=== PATIENT | female | born 1960 | race Asian ===

== ENCOUNTER 2018-12-24 23:50 | Emergency (ER) | payer OTHER ==
[~2018-12-24] VITALS: Ht 152.4 cm; Wt 57.2 kg
[2018-12-25 00:03] VITALS: Ht 152.4 cm; Wt 57.2 kg
[2018-12-25 00:51] LABS: UA SPECIFIC GRAVITY 1.015 (1.005-1.035); microscopic required? YES; urine erythrocyte 3+ (NEGATIVE)
[2018-12-25 00:55] LABS: BASOPHIL % 0.4 % (0-2); PLATELET COUNT 252 x10^3mcL (130-400); RED CELL DISTRIBUTION WIDTH 14.2 % (11.5-14.5)
[2018-12-25 01:04] LABS: CALCIUM 10.7 mg/dL (8.5-10.1); CARBON DIOXIDE 26.5 mmol/L (21-32); CHLORIDE SERUM 105 mmol/L (98-107); CREATININE SERUM 0.7 mg/dL (0.6-1.0); GFR1 > 60 mL/min; GLUCOSE SERUM 135 mg/dL (74-106); POTASSIUM SERUM 3.8 mmol/L (3.5-5.1); SODIUM SERUM 141 mmol/L (136-145)
[2018-12-25 01:09] LABS: ALBUMIN 3.7 g/dL (3.4-5.0); ALKALINE PHOSPHATASE 98 U/L (46-116); ALT/SGPT 7 U/L (14-59); AST/SGOT 15 U/L (15-37); BILIRUBIN TOTAL 0.44 mg/dL (0.20-1.00)
[2018-12-25 01:10] LABS: TOTAL PROTEIN, SERUM 8.5 g/dL (6.4-8.2)
[2018-12-25 02:58] VITALS: BP 113/78
[2018-12-26] MEDS ORDERED: LEVAQUIN750 MG PO (11:59)
[2018-12-26] MEDS ORDERED: IMITREX50 MG PO (12:13)
== END 2018-12-25 03:00 | disposition home or self-care (01) ==
LOC: ED 23:50
PROVIDERS: Specialist
DX: N39.0 Urinary tract infection, site not specified (principal)
CPT/HCPCS: 36415; J0696; Q0092

== ENCOUNTER 2018-12-25 10:07 | Inpatient (IN) | payer OTHER ==
[~2018-12-25] VITALS: Ht 170.2 cm; Wt 54.6 kg
[2018-12-25 10:54] LABS: BASOPHIL % 0.4 % (0-2); PLATELET COUNT 235 x10^3mcL (130-400); RED CELL DISTRIBUTION WIDTH 14.4 % (11.5-14.5)
[2018-12-25 11:03] LABS: CALCIUM 10.5 mg/dL (8.5-10.1); CARBON DIOXIDE 26.6 mmol/L (21-32); CHLORIDE SERUM 103 mmol/L (98-107); CREATININE SERUM 0.7 mg/dL (0.6-1.0); GFR1 > 60 mL/min; GLUCOSE SERUM 120 mg/dL (74-106); POTASSIUM SERUM 4.3 mmol/L (3.5-5.1); SODIUM SERUM 138 mmol/L (136-145)
[2018-12-25 11:08] LABS: ALBUMIN 3.7 g/dL (3.4-5.0); ALKALINE PHOSPHATASE 95 U/L (46-116); ALT/SGPT 18 U/L (14-59); AST/SGOT 34 U/L (15-37); BILIRUBIN TOTAL 0.4 mg/dL (0.20-1.00); LIPASE 102 IU/L (73-393)
[2018-12-25 11:09] LABS: TOTAL PROTEIN, SERUM 8.3 g/dL (6.4-8.2)
[2018-12-25 14:06] VITALS: BP 131/63
[2018-12-25 14:08] VITALS: Ht 170.2 cm; Wt 54.6 kg
[2018-12-25 16:13] VITALS: BP 114/69
[2018-12-25 16:43] LABS: MAGNESIUM 2.4 mg/dL (1.8-2.4); PHOSPHOROUS 3.5 mg/dL (2.5-4.9)
[2018-12-25 17:30] LABS: CHOLESTEROL/HDL RATIO 2.6
[2018-12-25 20:14] VITALS: BP 122/66
[2018-12-26 05:10] VITALS: BP 109/63
[2018-12-26 06:00] LABS: BASOPHIL % 0.3 % (0-2)
[2018-12-26 06:30] LABS: CALCIUM 10.1 mg/dL (8.5-10.1); CARBON DIOXIDE 28.1 mmol/L (21-32); CHLORIDE SERUM 105 mmol/L (98-107); CREATININE SERUM 0.7 mg/dL (0.6-1.0); GFR1 > 60 mL/min; GLUCOSE SERUM 96 mg/dL (74-106); MAGNESIUM 2.4 mg/dL (1.8-2.4); POTASSIUM SERUM 3.9 mmol/L (3.5-5.1); SODIUM SERUM 141 mmol/L (136-145)
[2018-12-26 06:48] LABS: PLATELET COUNT 221 x10^3mcL (130-400); RED CELL DISTRIBUTION WIDTH 14.6 % (11.5-14.5)
[2018-12-26 09:15] VITALS: BP 106/51
[2018-12-26] MEDS ORDERED: LEVAQUIN750 MG PO (11:59)
[2018-12-26] MEDS ORDERED: IMITREX50 MG PO (12:13)
[2018-12-26 14:10] VITALS: BP 106/51
== END 2018-12-26 15:04 | disposition home or self-care (01) | DRG 700 ==
LOC: ED 10:07 → MU 12:35
PROVIDERS: Emergency Medicine; ADMIT General Practice
DX: N28.89 Other specified disorders of kidney and ureter (principal); N17.0 Acute kidney failure with tubular necrosis; N39.0 Urinary tract infection, site not specified; R31.9 Hematuria, unspecified; K80.20 Calculus of gallbladder without cholecystitis without obstruction; E83.52 Hypercalcemia; R73.9 Hyperglycemia, unspecified
CPT/HCPCS: 83880; J0696; J2270; J2405; J7050; Q9967

== ENCOUNTER 2020-02-03 01:21 | Emergency (ER) | payer OTHER ==
[~2020-02-03] VITALS: Ht 157.5 cm; Wt 57.6 kg
[~2020-02-03 01:21] MED LIST: IMITREX50 MG PO; LEVAQUIN750 MG PO
[2020-02-03 01:29] VITALS: Ht 157.5 cm; Wt 57.6 kg
[2020-02-03 01:57] LABS: BASOPHIL % 0.2 % (0-2); PLATELET COUNT 264 x10^3mcL (130-400); RED CELL DISTRIBUTION WIDTH 13.8 % (11.5-14.5)
[2020-02-03 02:09] LABS: CALCIUM 12.8 mg/dL (8.5-10.1); CARBON DIOXIDE 27.6 mmol/L (21-32); CREATININE SERUM 1.1 mg/dL (0.6-1.0); POTASSIUM SERUM 4.2 mmol/L (3.5-5.1)
[2020-02-03 02:16] LABS: BILIRUBIN TOTAL 0.4 mg/dL (0.20-1.00); MAGNESIUM 2.4 mg/dL (1.8-2.4); TOTAL PROTEIN, SERUM 8.4 g/dL (6.4-8.2)
[2020-02-03 02:17] LABS: CHOLESTEROL/HDL RATIO 2.7
[2020-02-03 02:20] LABS: T3 TOTAL 1.46 ng/mL
[2020-02-03 02:22] LABS: FREE T4 1.12 ng/dL (0.76-1.46); FREE THYROXINE INDEX 3.2 ug/dL (1.4-4.5); T4(THYROXINE) 11.3 ug/dL (4.7-13.3)
[2020-02-03 04:18] LABS: microscopic required? YES
[2020-02-03 04:19] LABS: urine erythrocyte NEGATIVE (NEGATIVE)
[2020-02-03 05:13] VITALS: BP 145/79
== END 2020-02-03 05:13 | disposition home or self-care (01) ==
LOC: ED 01:21
PROVIDERS: Specialist
DX: E83.52 Hypercalcemia (principal); Z85.528 Personal history of other malignant neoplasm of kidney
CPT/HCPCS: 82652; 83880; 84439; J7030; Q0092

== ENCOUNTER 2020-02-08 21:33 | Inpatient (IN) | payer OTHER ==
[~2020-02-08] VITALS: Ht 152.4 cm; Wt 57.6 kg
[2020-02-08 21:46] VITALS: Ht 152.4 cm; Wt 57.6 kg
[2020-02-08 22:28] LABS: BASOPHIL % 0.7 % (0-2); PLATELET COUNT 282 x10^3mcL (130-400); RED CELL DISTRIBUTION WIDTH 13.1 % (11.5-14.5)
[2020-02-08 22:44] LABS: ALBUMIN 3.8 g/dL (3.4-5.0); BILIRUBIN TOTAL 0.23 mg/dL (0.20-1.00); CREATININE SERUM 1.5 mg/dL (0.6-1.0); POTASSIUM SERUM 4.9 mmol/L (3.5-5.1); TOTAL PROTEIN, SERUM 8.1 g/dL (6.4-8.2)
[2020-02-08 22:59] LABS: CALCIUM 14.4 mg/dL (8.5-10.1)
[2020-02-08 23:36] LABS: microscopic required? YES; urine erythrocyte 3+ (NEGATIVE)
[2020-02-09 02:43] VITALS: BP 129/63
[2020-02-09 04:21] LABS: CALCIUM 12.7 mg/dL (8.5-10.1); CREATININE SERUM 2.1 mg/dL (0.6-1.0); MAGNESIUM 2.2 mg/dL (1.8-2.4); PHOSPHOROUS 3.6 mg/dL (2.5-4.9); POTASSIUM SERUM 5.1 mmol/L (3.5-5.1)
[2020-02-09 04:29] LABS: T3 TOTAL 1.13 ng/mL
[2020-02-09 04:31] LABS: FREE T4 1.28 ng/dL (0.76-1.46); FREE THYROXINE INDEX 3.4 ug/dL (1.4-4.5); T4(THYROXINE) 10.6 ug/dL (4.7-13.3)
[2020-02-09 04:37] LABS: BASOPHIL % 0.2 % (0-2); PLATELET COUNT 252 x10^3mcL (130-400); RED CELL DISTRIBUTION WIDTH 13.1 % (11.5-14.5)
[2020-02-09 06:15] VITALS: BP 124/64
[2020-02-09 09:17] VITALS: BP 125/59
[2020-02-09 12:00] VITALS: BP 133/60
[2020-02-09 16:51] VITALS: BP 127/53
[2020-02-09 20:48] VITALS: BP 130/58
[2020-02-10 05:35] VITALS: BP 122/62
[2020-02-10 06:32] LABS: BASOPHIL % 0.2 % (0-2); PLATELET COUNT 218 x10^3mcL (130-400); RED CELL DISTRIBUTION WIDTH 13.2 % (11.5-14.5)
[2020-02-10 06:44] LABS: CALCIUM 12.1 mg/dL (8.5-10.1); CARBON DIOXIDE 23.4 mmol/L (21-32); MAGNESIUM 2.4 mg/dL (1.8-2.4); PHOSPHOROUS 3.6 mg/dL (2.5-4.9); POTASSIUM SERUM 5.5 mmol/L (3.5-5.1)
[2020-02-10 09:01] VITALS: BP 122/66
[2020-02-10 12:38] VITALS: BP 102/53
[2020-02-10 17:45] VITALS: BP 130/63
[2020-02-10 21:03] VITALS: BP 124/60; BP 136/52
[2020-02-10 21:06] LABS: AMPHETAMINE QUAL UR NONE DETECTED (See below)
[2020-02-11 05:15] VITALS: BP 116/61
[2020-02-11 06:26] LABS: BASOPHIL % 0.2 % (0-2); PLATELET COUNT 200 x10^3mcL (130-400)
[2020-02-11 07:08] LABS: CALCIUM 11.5 mg/dL (8.5-10.1); CARBON DIOXIDE 25.3 mmol/L (21-32); CREATININE SERUM 3.5 mg/dL (0.6-1.0); MAGNESIUM 2.1 mg/dL (1.8-2.4); PHOSPHOROUS 3.5 mg/dL (2.5-4.9); POTASSIUM SERUM 4.5 mmol/L (3.5-5.1)
[2020-02-11 08:18] VITALS: BP 114/47
[2020-02-11 12:26] VITALS: BP 131/67
[2020-02-11 14:39] LABS: CREATININE SERUM 5.1 mg/dL (0.6-1.0)
[2020-02-11 16:41] VITALS: BP 124/69
[2020-02-11 20:38] VITALS: BP 114/72
[2020-02-12 05:29] VITALS: BP 107/61
[2020-02-12 06:38] LABS: CALCIUM 10.3 mg/dL (8.5-10.1); CARBON DIOXIDE 25.3 mmol/L (21-32); CREATININE SERUM 2.2 mg/dL (0.6-1.0); MAGNESIUM 1.9 mg/dL (1.8-2.4); PHOSPHOROUS 2.5 mg/dL (2.5-4.9)
[2020-02-12 06:51] LABS: BASOPHIL % 0.4 % (0-2); PLATELET COUNT 181 x10^3mcL (130-400)
[2020-02-12 08:25] VITALS: BP 123/64
[2020-02-12 12:23] VITALS: BP 143/79
[2020-02-12 16:08] VITALS: BP 143/79
[2020-02-12] MEDS ORDERED: CIPRO500 MG PO (16:27)
[2020-02-12] MEDS ORDERED: PROBIOTIC1 EACH PO (16:28)
[2020-02-12] MEDS ORDERED: TYL325 PO (16:28)
== END 2020-02-12 17:24 | disposition home or self-care (01) | DRG 660 ==
LOC: ED 21:33 → MU 02-09 01:36 → DU 02-09 01:36 → MU 02-09 10:11
PROVIDERS: Emergency Medicine; Student in an Organized Health Care Education/Training Program; Urology; ADMIT Family Medicine
PROC: 0T768DZ Dilation of Right Ureter with Intraluminal Device, Via Natural or Artificial Opening Endoscopic (ICD-10-PCS; 2020-02-10)
PROC: BT1D1ZZ Fluoroscopy of Right Kidney, Ureter and Bladder using Low Osmolar Contrast (ICD-10-PCS; principal; 2020-02-10 15:00)
DX: N13.6 Pyonephrosis (principal); C78.02 Secondary malignant neoplasm of left lung; C78.01 Secondary malignant neoplasm of right lung; C64.1 Malignant neoplasm of right kidney, except renal pelvis; N13.9 Obstructive and reflux uropathy, unspecified; E87.5 Hyperkalemia; R91.1 Solitary pulmonary nodule; N17.0 Acute kidney failure with tubular necrosis; R31.9 Hematuria, unspecified; E83.52 Hypercalcemia; Z90.5 Acquired absence of kidney; Z90.2 Acquired absence of lung [part of]; Z68.21 Body mass index [BMI] 21.0-21.9, adult; Z90.81 Acquired absence of spleen
CPT/HCPCS: 76770; 83880; 84439; 97116-GP; C1758; C2625; G0378; J0696; J2270; J2405; J2430; J3010; J3490; J7030; J7060; Q0092; Q9958; Q9967

== ENCOUNTER 2020-05-20 19:07 | Inpatient (IN) | payer OTHER ==
[~2020-05-20] VITALS: Ht 165.1 cm; Wt 50.3 kg
[~2020-05-20 19:07] MED LIST changes: +CIPRO500 MG PO; +PROBIOTIC1 EACH PO; +TYL325 PO
--- NOTE | 2020-05-20 19:22 | NUR ---
PT BIB [facility] FOR WEAKNESS AND CP. PER MEDIC FAMILY REPORTS PT IS ON HOSPICE FOR KIDNEY AND LUNG CANCER. PER FAMILY PT HGB EARLIER TODAY AT STUDIO COORDINATOR WAS 4.1 AND STUDIO COORDINATOR RECOMMENDED PT GO TO ED FOR BLOOD TRANSFUSION. PT C/O FEELING WEAK, DENIES N/V AND CP AT THIS TIME. PER MEDIC PT FAMILY REPORTS TAKING PT OFF HOSPICE TODAY TO GET TREATMENT FOR LOW HBG. PT IS CALM AND COOPERATIVE, RESPONDS TO VERBAL AND TACTILE STIMULI. PT NOTED WITH EYES CLOSED AND APPEARS PALE. PT IS A&OX4, BREATHING E/U. PT PLACED ON FULL PAIL TESTER.
--- NOTE | 2020-05-20 19:24 | NUR ---
EKG IN PROGRESS BY RAY EMT
--- NOTE | 2020-05-20 19:31 | NUR ---
XRAY AT BEDSIDE
[2020-05-20 19:41] LABS: BASOPHIL % 0.1 % (0-2)
[2020-05-20 19:42] LABS: PLATELET COUNT 468 x10^3mcL (130-400)
--- NOTE | 2020-05-20 19:52 | NUR ---
DR DYKES AT BEDSIDE FOR MSE
[2020-05-20 19:54] LABS: rbc morphology (normal/abnorm) ABNORMAL (NORMAL)
[2020-05-20 19:55] LABS: schistocyte (helmet cell) 1+; target cell (codocyte) 1+
[2020-05-20 19:57] LABS: BILIRUBIN TOTAL 0.3 mg/dL (0.20-1.00); CARBON DIOXIDE 14.8 mmol/L (21-32); TOTAL PROTEIN, SERUM 7.4 g/dL (6.4-8.2)
[2020-05-20 19:58] LABS: ALBUMIN 2.8 g/dL (3.4-5.0)
[2020-05-20 20:00] LABS: CALCIUM 13.7 mg/dL (8.5-10.1); CREATININE SERUM 5.3 mg/dL (0.6-1.0)
--- NOTE | 2020-05-20 21:26 | NUR ---
PT NOTED RESTING IN BED IN A POSITION OF COMFORT. PT ASSISTED WITH ACCESSING HER BAG AT BEDSIDE TO OBTAIN BLANKET FROM HOME. PT ALSO RECEIVED WARM BLANKET. PT RESPONDS TO VERBAL AND TACTILE STIMULI. PT REMAINS ON FULL HUMAN RESOURCES BENEFITS ASSISTANT.
--- NOTE | 2020-05-20 23:05 | NUR ---
DR DYKES MADE AWARE OF BLOOD GLUCOSE-56, PER DR DYKES GIVE PT APPLE JUICE AND WATER.
--- NOTE | 2020-05-20 23:11 | NUR ---
PT RECEIVED WATER AND APPLE JUICE AT THIS TIME. PT NOTED SITTING UP IN BED, BREATHING E/U. PT REMAINS IN VIEW OF NURSES STATION AND ON FULL HIDE DYER.
--- NOTE | 2020-05-20 23:42 | NUR ---
REPORT CALLED TO ARSEN BERGER. ARSEN MOORE TO ASSUME PT CARE. PT GOING TO 237B
--- NOTE | 2020-05-20 23:46 | NUR ---
RECEIVED PT FROM ED [facility]IA [facility], CAME IN DUE TO WEAKNESS. PT IS AAOX4. DENIES HEADACHE/DIZZINESS. ABLE TO FOLLOW COMMANDS. NO SOB NOTED, LUNG SOUNDS DIMINISHED ON AUSCULTATION, O2 SAT=93%, RA. DENIES CHEST PAIN/PRESSURE, SR ON THE MONITOR. DENIES ABDOMINAL DISCOMFORT. ABDOMEN IS SOFT. LAST BM WAS YESTERDAY, HAD HARD STOOLS. STATED THAT SHE HAS FREQUENT URINATION. IV SITES ON THE LAC AND LEFT FOOT GAUGE 20. GENERALIZED WEAKNESS NOTED. SIDE RAILS UPX2. CALL LIGHT ON REACH. PRIMARY NURSE OSCAR AT BEDSIDE FOR CONTINUITY OF CARE
--- NOTE | 2020-05-20 23:51 | NUR ---
PT OFF FLOOR WITH ARSEN GREGORIO AND MANJEET RICHARDS. PT ON FULL COMPUTER APPLICATION DEVELOPER DURING TRANSPORT. PT IS AWAKE AND ALERT, BREATHING E/U, NO S/S OF DISTRESS NOTED. PT TRANSF[place]IA [place]. PT TRANSFERED FROM [facility] [place] TO BED 237B WITHOUT INJURY. ARSEN MOORE AT BEDSIDE TO ASSUME PT CARE.
[2020-05-21] VITALS (9 sets, daily range): BP systolic 105–165; BP diastolic 59–102; Ht 165.1 cm; Wt 50.3 kg
--- NOTE | 2020-05-21 00:40 | NUR ---
PRE-PRBC TRANSFUSION VS: 99.4F, 91BPM, 132/64 (87), 17 RR, 94% ON 1LNC. PRBC VERIFED WITH ARSEN SLOAN. IV PATENT AND INTACT, PRBC STARTED AT 50ML/HR. NO ACUTE DISTRESS NOTED. WILL CONTINUE TO MONITOR FOR ANY ADVERSE S/S.
--- NOTE | 2020-05-21 00:59 | NUR ---
POST 15MINS PRBC TRANSFUSION. NO S/S OF ADVERSE REACTION. NO ACUTE DISTRESS NOTED. VS: 98.8F, 82BPM, 128/62 (84), 16RR, 96% ON 1LNC, 0/10 PAIN. RATE INCREASE TO 110 ML/HR. PT TOLERATING WELL. BED IN LOWEST POSITION. SIDE RAILS UPX2. CALL LIGHT WITHIN REACH. WILL CONTINUE TO MONITOR.
[2020-05-21 01:16] LABS: CARBON DIOXIDE 16.4 mmol/L (21-32)
[2020-05-21 01:22] LABS: POTASSIUM SERUM 6.2 mmol/L (3.5-5.1)
[2020-05-21 01:23] LABS: CALCIUM 13.1 mg/dL (8.5-10.1); CREATININE SERUM 5.3 mg/dL (0.6-1.0)
--- NOTE | 2020-05-21 04:21 | NUR ---
PT'S SON AMARJIT CALLED AND ALL UPDATES GIVEN, AMARJIT [phone].
--- NOTE | 2020-05-21 04:29 | NUR ---
PRBC TRANSFUSION COMPLETED 0350, PT C/O CHILLS, VS: 100.4F, 131 BPM, 165/102 (123), 30RR, 92% ON 2LNC, 0/10 PAIN. PT AWAKE, ABLE TO FOLLOW SIMPLE COMMANDS. ATTEMPTED TO MEDICATE PT FOR TEMP, UNABLE TO KEEP PO MEDICATIONS AND WATER DOWN, NAUSEA AND VOMITING NOTED. MD MADE AWARE. BLOOD TRANSFUSION REACTION PROTOCOL INITIATED. BLOOD BAG WITH TUBING SENT TO LAB. ORDERED MEDICATIONS ADMINISTERED PER EMAR. 250ML NS BOLUS INFUSING. IV PATENT AND INTACT, NO REDNESS OR DRAINAGE NOTED. BED IN LOWEST POSITION. SIDE RAILS UPX2. CALL LIGHT WITHIN REACH. WILL CONTINUE TO MONITOR.
--- NOTE | 2020-05-21 06:20 | NUR ---
PT RESTED IN INTERVALS THROUGHOUT THE SHIFT. ALL NEEDS TENDED TO AND MET. ALL SCHEDULED MEDICATION GIVEN. S/P 1 UNIT PRBC, REACTION NOTED POST TRANSFUSION: CHILLS, N/V, DYPNEA, ELEVATED BP, TACHYCARDIC. EVEN AND UNLABORED RESPIRATIONS ON 2LNC, SATTING 93%, ON TELE# [address] 110-140'S BPM. NO C/O PAIN OR SOB AT THIS TIME. BED IN LOWEST POSITION. SIDE RAILS UPX2. CALL LIGHT WITHIN REACH. WILL ENDORSE TO ONCOMING SHIFT.
[2020-05-21 07:15] LABS: BASOPHIL % 0.1 % (0-2)
--- NOTE | 2020-05-21 07:15 | NUR ---
RECEIVED PT FROM MANAGER CULINARY NURSE. PT RESTING IN BED, AOX4, RESP E/U ON 2L NC. C/O R FLANK PAIN AT THIS TIME. WILL F/U W/ PAIN MED ORDERS PER EMAR, COMFORT MEASURES IMPLEMENTED. ON TELE [address], HR: 121, S1 AND S2 WNL, DENIES CHEST PAIN OR PALPITATIONS. IV TO LAC W/ NO SIGNS OF INFILTRATION, SALINE LOCK TO L ANKLE W/ NO ERYTHEMA/EDEMA. BED IN LOWEST POSITION AND CALL LIGHT WITHIN REACH. WILL CONTINUE TO MONITOR.
[2020-05-21 07:16] LABS: PLATELET COUNT 405 x10^3mcL (130-400); RED CELL DISTRIBUTION WIDTH 19.6 % (11.5-14.5)
--- NOTE | 2020-05-21 07:54 | NUR ---
PT SEEN AT BEDSIDE. TEMP: 100.1. PT NOTED TO HAVE DIFFICULTY SWALLOWING WATER AT THIS TIME, DENIES NAUSEA. ADMINISTERED TYLENOL ORDERED PER EMAR W/ MERLENE, TOLERATED WELL. COOLING MEASURES IMPLEMENTED. WILL CONTINUE TO MONITOR.
[2020-05-21 08:21] LABS: CALCIUM 12.9 mg/dL (8.5-10.1); CARBON DIOXIDE 14.9 mmol/L (21-32); MAGNESIUM 1.8 mg/dL (1.8-2.4); PHOSPHOROUS 5.4 mg/dL (2.5-4.9)
[2020-05-21 08:25] LABS: CREATININE SERUM 5.5 mg/dL (0.6-1.0); POTASSIUM SERUM 6.4 mmol/L (3.5-5.1)
--- NOTE | 2020-05-21 11:50 | NUR ---
PT RESTING IN BED, AOX3, RESP E/U ON 2L NC. PT STATED SHE NEEDED TO URINATE. ASSISTED TO RESTROOM VIA WALKER, 230 ML OF BLOODY URINE NOTED, SAMPLE FOR UA COLLECTED. BLADDER SCAN DONE AT BEDSIDE, NO RETAINED FLUIDS DETECTED. PT DENIES PAIN, SOB OR NAUSEA. BED IN LOWEST POSITION AND CALL LIGHT WITHIN REACH. WILL CONTINUE TO MONITOR.
--- NOTE | 2020-05-21 13:39 | NUR ---
SPOKE W/ DR. EVERETT REGARDING BLADDER SCAN FINDINGS AND PT BLOODY URINE OUTPUT. INSTRUCTED NOT TO INTITIATE GROVE CATHETER INSERTION.
[2020-05-21 14:01] LABS: microscopic required? YES; urine erythrocyte 3+ (NEGATIVE)
--- NOTE | 2020-05-21 14:34 | NUR ---
PT SEEN AT BEDSIDE. ACCUCHECK DONE, GLUCOSE: 18, REPEATED W/ SAME RESULT. DR. EVERETT PAGED. ORDERED FOR D50 IVP AND TO HANG IV D5W AT 15 ML/HR PER EMAR. RECHECKED AFTER 15 MINUTES, GLUCOSE: 127. RESULT PAGEMD Gina CALLED, AWAITING RESPONSE FOR FURTHER ORDERS.
--- NOTE | 2020-05-21 18:55 | NUR ---
PRE TRANSFUSION VS TAKEN, T: 97.7, HR: 86, BP: 121/63, RR: 16, O2: 92% ON RA. BLOOD PRODUCT VERIFIED W/ RN JANEL. TRANSFUSION OF 1 UNIT PRBC STARTED AT 30 ML/HR INFUSING WELL. PT RESTING IN BED IN NO ACUTE DISTRESS. BED IN LOWEST POSITION AND CALL LIGHT WITHIN REACH. WILL ENDORSE TO ONCOMING NURSE.
--- NOTE | 2020-05-21 19:00 | NUR ---
RECEIVED REPORT FROM RAMAKRISHNA LEGER. PT IS AAOX3 AND LETHARGIC. PT DENIES ANY ORR/DIZZINESS. PT ON TELE #22, NSR WITH ELEV T WAVE. PT DENIES CP/PRESSURE. PT PULSES PALPABLE AND CAP REFILL <3 SEC. EDEMA NOTED TO BLE. PT LUNG SOUNDS DIMINISHED ON 2L NC. PT BREATHING E/U. PT DENIES SOB OR RESP DISTRESS. PT ABD SOFT/NONDISTENDED WITH ACTIVE BS X4. PT DENIES N/V/C/D. PT VOIDS FREELY. PT HAS GENERALIZED WEAKNESS, BUT AMBULATORY WITH ASSIST. PT SKIN INTACT. PT IS PALE COLOR. PT IS RECEIVING BLOOD TRANSFUSION AT THIS TIME INFUSING AT 100ML/HR. PT DENIES S/S OF PAIN OR DISCOMFORT AT THIS TIME. PT IV PATENT/INTACT. ALL NEEDS MET. CALL LIGHT WITHIN REACH. BED IN LOWEST POSITION. SIDE RAILS X2 UP. WILL CONTINUE TO MONITOR.
--- NOTE | 2020-05-21 19:20 | NUR ---
AT BEDSIDE WITH RAMAKRISHNA LEGER. BLOOD TRANSFUSING WELL AT 30ML/HR. 15 MIN V/S TAKEN. TEMP: 97.7, HR: 82, BP: 125/67, RR: 16, P02: 95% RA. NO ADVERSE RXN NOTED AT THIS TIME. INCREASED BLOOD TRANSFUSION TO 100ML/HR. CALL LIGHT WITHIN REACH. BED IN LOWEST POSITION. SIDE RAILS X2 UP. WILL CONTINUE TO MONITOR.
--- NOTE | 2020-05-21 20:21 | NUR ---
SON AMARJIT CALLED TO SPEAK WITH PT. TRANSFERRED CALL TO ROOM.
--- NOTE | 2020-05-21 22:00 | NUR ---
BLOOD TRANSFUSION COMPLETED AT THIS TIME. POST V/S ARE TEMP: 97.4, HR: 89, BP: 134/64, RR: 16, P02: 97% ON 2LNC. WILL CONTINUE TO MONITOR.
--- NOTE | 2020-05-21 22:30 | NUR ---
PT REFUSED TO HAVE GROVE INSERTION AND WOULD RATHER USE THE BATHROOM. WILL MAKE DR. OSPINA AWARE.
--- NOTE | 2020-05-21 23:35 | NUR ---
PT C/O NAUSEA AND IS SPITTING UP SALIVA INTO [place]. PER EMAR, ADMINISTERED ZOFRAN IVP FOR NAUSEA. WILL CONTINUE TO MONITOR.
--- NOTE | 2020-05-21 23:40 | NUR ---
HAIR SALON MANAGER AT BEDSIDE TO TAKE BLOOD DRAWS AFTER COMPLETION OF BLOOD TRANSFUSION.
[2020-05-22 00:40] LABS: PLATELET COUNT 363 x10^3mcL (130-400)
[2020-05-22 00:45] LABS: RED CELL DISTRIBUTION WIDTH 18.5 % (11.5-14.5)
[2020-05-22 01:03] LABS: BAND NEUTROPHIL 6 % (0-10); MONOCYTE 4 % (0-7); SEGMENTED NEUTROPHILS 81 % (37-75); burr cell (echinocyte) 1+; rbc morphology (normal/abnorm) ABNORMAL (NORMAL)
[2020-05-22 01:04] LABS: schistocyte (helmet cell) 1+
--- NOTE | 2020-05-22 01:06 | NUR ---
MADE DR. OSPINA AWARE OF WBC 20.9. PER DR, SHE WILL LOOK AT THE CHART. NO ORDERS GIVEN AT THIS TIME.
--- NOTE | 2020-05-22 01:19 | NUR ---
SPOKE WITH DR. OSPINA. PER , PT IS POSSIBLE TO HAVE UTI. SHE WILL PUT IN ORDER FOR URINE CULTURE AND ANTIBIOTICS.
[2020-05-22 04:37] VITALS: BP 122/69
--- NOTE | 2020-05-22 06:54 | NUR ---
PT IS MOANING IN PAIN. PER EMAR, ADMINISTERED NORCO PO FOR PAIN. WILL REASSESS PAIN. WILL CONTINUE TO MONITOR.
--- NOTE | 2020-05-22 06:54 | NUR ---
PT RESTED COMFORTABLY IN INTERVALS DURING THE NIGHT. PT COMPLIED WITH NURSING CARE DURING THE SHIFT. SAFETY AND COMFORT MEASURES MAINTAINED. NO ACUTE DISTRESS NOTED DURING THE NIGHT. ALL NEEDS AND CONCERNS ADDRESSED. WILL ENDORSE TO DAY SHIFT NURSE.
[2020-05-22 07:43] LABS: PLATELET COUNT 343 x10^3mcL (130-400)
--- NOTE | 2020-05-22 08:00 | NUR ---
RECEIVED PT FROM PM NURSE. PT IS RESTING IN BED AT THIS TIME. PT IS A/OX2. REORIENTED PT TO TIME AND PLACE. LETHARGIC. URDU SPEAKING ONLY. DIMINISHED LUNG SOUNDS. PT IS CURRENTLY ON 2L VIA NC. NO SOB NOTED AT THIS TIME. TELE #22. NSR WITH OCCASIONAL ELEVATED T WAVES. NO S/SX CP AT THIS TIME. PULSES EVEN AND PALPABLE. EDEMA NOTED TO BLE. HYPOACTIVE BS X4. ABD SOFT AND ROUND. VOIDS FREELY. BSC BY BEDSIDE. GENERALIZED WEAKNESS NOTED. BEDREST AT THIS TIME. SKIN INTACT. SLIGHT GRIMACE NOTED, WILL ADMINSTER PRN PAIN MEDICATION PER EMAR. IV TO RFA 20G RUNNING NS 100ML/HR AT THIS TIME. BED AT THE LOWEST POSITION. CALL BUTTON WITHIN REACH. WILL CONTINUE TO MONITOR.
[2020-05-22 08:09] VITALS: BP 129/71
[2020-05-22 08:13] LABS: BASOPHIL % 0 % (0-2); RED CELL DISTRIBUTION WIDTH 18.6 % (11.5-14.5)
[2020-05-22 08:18] LABS: CALCIUM 11.7 mg/dL (8.5-10.1); CARBON DIOXIDE 13.2 mmol/L (21-32); MAGNESIUM 1.9 mg/dL (1.8-2.4)
[2020-05-22 08:34] LABS: POTASSIUM SERUM 6.2 mmol/L (3.5-5.1)
--- NOTE | 2020-05-22 11:05 | NUR ---
PT IS MOANING IN PAIN. PER EMAR. WILL ADMINISTER MORPHINE PRN FOR SEVERE PAIN.
[2020-05-22 12:20] VITALS: BP 132/76
[2020-05-22 14:42] LABS: PLATELET COUNT 340 x10^3mcL (130-400)
[2020-05-22 14:53] LABS: RED CELL DISTRIBUTION WIDTH 18.8 % (11.5-14.5)
[2020-05-22 15:33] LABS: BAND NEUTROPHIL 15 % (0-10); BASOPHIL 0 % (0-2); MONOCYTE 1 % (0-7); SEGMENTED NEUTROPHILS 82 % (37-75)
[2020-05-22 15:34] LABS: rbc morphology (normal/abnorm) NORMAL (NORMAL)
[2020-05-22 15:35] LABS: PLATELET MORPHOLOGY PLATELETS NORMAL
--- NOTE | 2020-05-22 16:00 | NUR ---
dr. ramirez and dr. wen at bedside for hansel catheter placement. sh=892/73, rr=18, temp=98.8, qb=754, o2 sat=94% on 2lpm/nc. timeout performed.
--- NOTE | 2020-05-22 19:34 | NUR ---
ENDORSED CARE TO PM NURSE FOR CONTINUITY OF CARE. ALL QUESTIONS/CONCERNS ANSWERED.
--- NOTE | 2020-05-22 21:32 | NUR ---
PT VERY QUIET IN BED STABLE BEING HEMODIALYZED. NO DISTRESS NOTED. WILL CONTINUE TO GO IN TO SEE PATIENT. DIALYSIS NURSE AT BEDSIDE.
--- NOTE | 2020-05-23 00:10 | NUR ---
PTT IN BED AND NOT SEEM TO BE TOLERATING SWALLOWING. WILL INFORM MD. PT KEEPS FOOD IN MOUTH FOR A LONG TIME AND COUGHS AND SEEMS TO HAVE A DIFFICULT TIME WITH SWALLOWING.
--- NOTE | 2020-05-23 01:08 | NUR ---
PT GROANING IN PAIN. PT ASKED IF IN PAIN AND NODDED. WHEN ASKED WHERE, PATIENT PUTS HAND ON ABDOMEN. MORPHINE IV GIVEN. BP 128/71. NO OTHER DISTRESS NOTED. WILL CONTINUE TO MONITOR.
[2020-05-23 05:40] VITALS: BP 116/72
[2020-05-23 06:42] LABS: BASOPHIL % 0.1 % (0-2); PLATELET COUNT 268 x10^3mcL (130-400)
[2020-05-23 07:02] LABS: RED CELL DISTRIBUTION WIDTH 18.4 % (11.5-14.5)
[2020-05-23 07:19] LABS: CALCIUM 8.9 mg/dL (8.5-10.1); CARBON DIOXIDE 22.2 mmol/L (21-32); MAGNESIUM 1.5 mg/dL (1.8-2.4); PHOSPHOROUS 3.7 mg/dL (2.5-4.9); POTASSIUM SERUM 4.2 mmol/L (3.5-5.1)
[2020-05-23 07:21] LABS: CREATININE SERUM 4.7 mg/dL (0.6-1.0)
[2020-05-23 07:24] VITALS: BP 121/66
--- NOTE | 2020-05-23 08:21 | NUR ---
RECEIVED PATIENT FROM NIGHT NURSE. AWAKE, ALERT. APPEARS ORIENTED TO PERSON, PLACE. SPEECH CLEAR AND ABLE TO MAKE NEEDS KNOWN. MONITOR SHOWING SINUS TACH; RATE 110. IV INFUSING NS AT 100 ML/HR IN RFA. PATIENT REPOSITIONED IN BED FOR COMFORT. TAKING ONLY SMALL AMOUNTS OF WATER PO, AT THIS TIME.
--- NOTE | 2020-05-23 10:50 | NUR ---
AT 1000 - STRAIGHT CATH DONE BY STUDENT NURSE WITH RIDE ATTENDANT GUIDANCE. URINE COLLECTED AND TAKEN TO LAB FOR URINE CULTURE. PATIENT HAD VERY SMALL AMOUNT OF DARK BLOOD-STAINED URINE. RECEIVED CALL FROM PATIENT'S SON, AMARJIT CORREA. HE WOULD LIKE DOCTOR TO CALL HIM WITH UPDATES. TEL: [phone]. IF PATIENT IS TO BE DISCHARGED HOME TODAY, PLEASE CALL PATIENT'S JESSENIA ON [phone] AT 1047 - SPOKE WITH DR EVERETT DURING MORNING ROUNDS. SHE WILL CALL SON.
--- NOTE | 2020-05-23 13:20 | NUR ---
AT 1100 - PATIENT PLACED NPO FOR PLACEMENT OF TUNNEL CATHETER TODAY. PATIENT HAS BEEN GIVEN MG OXIDE PER EMAR FOR MG OF 1.5 AT 1215 - SPOKE WITH OR NURSE. REPORT GIVEN AT 1230 - PATIENT'S SON AMARJIT CORREA PER PHONE. HE SPOKE WITH HIS MOTHER PER PHONE AND EXPLAINED TO HER PLANNED PROCEDURE, IN [place]. SON GAVE TELEPHONE CONSENT FOR INSERTION OF TUNNEL DIALYSIS CATHETER WITH FLUROSCOPY. TELEPHONE CONSENT WITTNESSED BY ARSEN YI. CHLORHEXEDINE WIPES, SKIN PREP DONE AND PATIENT PREPARED FOR SURGERY. AT 1300 - IV INFUSION CHANGED TO DEXTROSE 5 % AT 20 ML/HR
--- NOTE | 2020-05-23 13:30 | NUR ---
RECEIVED ORDER FOR HEMODIALYSIS. TO BE DONE AFTER SURGERY FOR TUNNEL CATHETER PLACEMENT. CALL PALCED FOR DIALYSIS CLAUDIO TO NOTIFY.
--- NOTE | 2020-05-23 16:29 | NUR ---
AT 1355 - PPD TB SKIN TEST DONE BY STUDENT NURSE WITH ENVIRONMENTAL SERVICES DIRECTOR STACEY. TO BE READ IN 48 AND 72 HR. PAPER DOCUMENTATION IN CHART. AT 1415 - SPOKE WITH ARSEN SMITH FROM SURGERY REGARDING TIME OF PATIENT'S SURGERY. HE SPOKE WITH DR ARMENTA WHO TOLD HIM THAT PATIENT'S HEMODIALYSIS CAN GO AHEAD ORDERED; NO NEED TO WAIT FOR TODAY'S SURGERY. AT 1615 0 RECEIVED CALL FROM PATIENT'S SON AMARJIT. HE SPOKE WITH PATIENT PER PHONE AND REQUESTED THAT THE PRIMARY PHYSICIAN CALL HIM. SPOKE WITH DR ANGEL. THEY WILL CALL CAIO'S SON. HEMODIALYSIS NURSE AT BEDSIDE PREPARING FOR TODAY'S HD.
[2020-05-23 16:43] VITALS: BP 128/80
--- NOTE | 2020-05-23 19:08 | NUR ---
DIALYSIS NURSE REPORTED THAT HE HAS SPOKE WITH PATIENT IN [place] AND THAT SHE IS AGREEABLE TO HAVE TUNNEL CATH INSERTED TOMORROW. FAMILY IS AWARE. DIALYSIS STIL IN PROGRESS. VSS AND WNL. IV INFUSING D5 AT 20 ML/HR. PATIENT IS BACK ON PUREED DIET BUT IS NOT EATING ONLY DRINKS WATER. WILL ENDORSE CARE TO NIGHT NURSE.
--- NOTE | 2020-05-23 19:25 | NUR ---
HEMODIALYSIS COMPLETED. TOTAL OF 1000 ML REMOVED.
--- NOTE | 2020-05-23 20:55 | NUR ---
PT A/A/O X3. DENIES DIZZINESS AND HEADACHE. BREATH SOUNDS DIMINIHSED NEVILLE LUNGS. BREATHING EVEN AND UNLABORED ON 3L NC, SPO2 92%. DENIES CHEST PAIN AND PRESSURE. BOWEL SOUNDS ACTIVE. NO ABD PAIN C/O NAUSEA. GAVE PT ZOFRAN IVP. PT TOLERATED IT WELL. JERARDO CATH NOTED ON THE RIJ. IV INTACT ON THE RIGHT FOREARM INFUSING WITH D5 AT 20 ML/HR. MADE PT COMFORTABLE. PLACED CALL LIGHT WITH IN REACH. WILL CONTINUE TO MONITOR.
[2020-05-23 21:12] VITALS: BP 135/77
--- NOTE | 2020-05-24 00:57 | NUR ---
PT QUIET IN BED. NO C/O DISCOMFORT THUS FAR. MADE PT COMFORTABLE. WILL CONTINUE TO MONITOR.
[2020-05-24 04:58] VITALS: BP 140/81
--- NOTE | 2020-05-24 06:41 | NUR ---
PT QUIET AND RESTING. NO C/O NAUSEA AND PAIN THUS FAR. JERARDO CATH INTACT. MADE PT COMFORTABLE. WILL ENDORSE TO THE AM NURSE ACCORDINGLY.
[2020-05-24 07:12] LABS: CALCIUM 8.5 mg/dL (8.5-10.1); CARBON DIOXIDE 25.3 mmol/L (21-32); MAGNESIUM 1.7 mg/dL (1.8-2.4); PHOSPHOROUS 3.7 mg/dL (2.5-4.9); POTASSIUM SERUM 3.6 mmol/L (3.5-5.1)
[2020-05-24 07:13] LABS: PLATELET COUNT 223 x10^3mcL (130-400)
[2020-05-24 08:14] LABS: BASOPHIL % 0 % (0-2); RED CELL DISTRIBUTION WIDTH 18.8 % (11.5-14.5)
--- NOTE | 2020-05-24 08:22 | NUR ---
PATIENT IS A&0X3 TO PERSON, PLACE AND SITUATION. TELE #22, ST, PERIPHERAL PULSES PALPABLE W/ TRACE BLE. LUNG SOUNDS DIMINISHED BILATERALLY, ON 3L NC, O2 SAT 93%, DENIES SOB. NORMOACTIVE BSX4, ABD SOFT AND FLAT, DENIES ABD PAIN. VOIDS USING RESTROOM. HD PATIENT. STATES BLOODY URINE WHEN URINATING. GENERALIZED WEAKNESS, AMBULATORY WITH ASSIST. SKIN IS CDI. DENIES PAIN OR DISCOMFORT AT THIS TIME. IV SITE IS CDI. WILL CONTINUE TO MONITOR PATIENT.
[2020-05-24 08:32] VITALS: BP 140/82
--- NOTE | 2020-05-24 08:44 | NUR ---
SPOKE TO DR. STATON PERTAINING TO PATIENT'S BLOODY URINE. MD IS AWARE. MD STATED IF POSSIBLE TO HAVE PATIENT VOID ON A URINAL IN ORDER TO KEEP TRACK OF I&O AND APPEARANCE OF URINE. NO FURTHER ORDERS OR RECOMMENDATIONS AT THIS TIME. WILL CONTINUE TO MONITOR.
[2020-05-24 12:20] VITALS: BP 151/90
--- NOTE | 2020-05-24 13:03 | NUR ---
OR NURSE CALLED AND REQUESTED REPORT PRIOR TO SURGERY FOR TUNNEL CATH PLACEMENT. ALL QUESTIONS AND CONCERNS HAVE BEEN ADDRESSED. PATIENT WILL BE PICKED UP SOON BY OR STAFF.
--- NOTE | 2020-05-24 13:05 | NUR ---
NOTIFIED THAT GUME MCCABE FROM CASE MANAGEMENT REQUIRES COVID TESTING TO BE DONE IN ORDER FOR PATIENT TO RECEIVE HD OUTPATIENT. DOCTOR MARGUERITE CALLED AND CONFIRMED, AND WILL PUT IN AN ORDER. TESTING WILL BE DONE ONCE PATIENT RETURNS FROM SURGERY.
--- NOTE | 2020-05-24 15:13 | NUR ---
PATIENT RETURNED FROM OR. PATIENT APPEARS A&OX4, FOLLOWS COMMANDS AND COOPERATES WELL. PATIENT DENIES ANY NAUSEA OR PAIN AT THIS TIME. VSS AND ARE FOLLOWS: 97.8 TEMP, 16 RESP, 98 PULSE, 134/87 BP, O2 SAT 97% W/ 2L NC. NEW TUNNEL CATH SITE IS CDI WITH DRESSING. NOTIFIED PATIENT OF THE POSSIBILITY OF INSERTING A PICC LINE. WILL CONTINUE TO MONITOR PATIENT.
[2020-05-24 15:15] VITALS: BP 134/87
--- NOTE | 2020-05-24 16:06 | NUR ---
SPOKE W/ AND ASKED IF OKAY TO INSERT PICC LINE AND HE STATED IT'S OKAY.
[2020-05-24 16:45] VITALS: BP 135/86
--- NOTE | 2020-05-24 18:17 | NUR ---
PATIENT IS EATING DINNER AT THIS TIME. PATIENT DENIES ANY PAIN OR DISCOMFORT AT THIS TIME. WILL CONTINUE TO MONITOR PATIENT.
--- NOTE | 2020-05-24 18:51 | NUR ---
INQUIRED DR. ARMENTA IF WE ARE ABLE TO USE TUNNEL CATH FOR FUTURE HEMODIALYSIS. STATED IT WAS OKAY TO USE TUNNEL CATH FOR THAT PURPOSE. NO FURTHER ORDERS AT THIS TIME.
--- NOTE | 2020-05-24 19:09 | NUR ---
CHARGE NURSE AND I ATTEMPTED TO REACH PICC LINE NURSE. PICC LINE NURSE DID NOT PSYCHOLOGY TEACHER THE PHONE. WILL ENDORSE TO FORMING MACHINE UPKEEP MECHANIC HELPER NURSE.
--- NOTE | 2020-05-24 19:51 | NUR ---
PT IS ALERT AND ORIENTED X4, BREATHING REGULAR AND UNLABORED ON ROOM AIR. PT DENIES ANY SOB, HEADACHE, DIZZINESS, NAUSEA, OR DISTRESS AT THIS TIME. RFA PIV INFUSING D5 AT 20ML/HR, NO SIGNS OF INFILTRATION. BILATERAL BREATH SOUNDS DIMINISHED. ACTIVE BOWEL SOUNDS. TELE 22, NSR. RJ TUNNELED CATHETER IN PLACE WITH DRESSING CLEAN AND DRY. PT VERBALIZED UNDERSTANDING OF CALL LIGHT USE AND SAFETY PRECAUTIONS. WILL CONTINUE TO MONITOR.
[2020-05-24 20:40] VITALS: BP 128/81
--- NOTE | 2020-05-24 22:01 | NUR ---
SPOKE WITH THE PICC LINE NURSE COMING. PICC LINE NURSE SUGGESTED INSTEAD OF PICC LINE TO INSERT A MID LINE INSTEAD. PICC LINE NURSE WANTS CLEARANCE AND CLARIFICATION FROM KOSHER DIETARY SERVICE SUPERVISOR REGARDING PICC LINE INSERTION. DR. SALGADO PAGED. DR. FARR NOTIFIED OF PICC LINE NURSE RECOMMENDATIONS. WAITING FOR DR. SAENZ CALL BACK. WILL CONTINUE TO MONITOR.
--- NOTE | 2020-05-24 23:46 | NUR ---
PICC LINE NURSE AT BEDSIDE FOR PICC INSERTION PROCEDURE ORDERED.
--- NOTE | 2020-05-25 00:49 | NUR ---
2350 BULGARIAN COMPUTER AIDED DESIGN OPERATOR RADHA MYRIAM (ID#[id number]) PER PT REQUEST. PT ASKING REGARDING PICC LINE INDICATION AND INSERTION PROCEDURE. DR. FARR AND PICC RN DISCUSSED WITH PATIENT AT LENGTH REGARDING PICC LINE INDICATION FOR IV ANTIBIOTIC THERAPY. PT'S SON AMARJIT CALLED PER PT REQUEST. PT'S SON, PICC RN, DR. FARR, AND PRIMARY RN DISCUSS PLAN OF CARE AND PROCEDURE. PT'S SON AND PATIENT CONSENT TO PICC INSERTION. 0030 PICC NURSE PREPARED FOR INSERTION PROCEDURE, PT REFUSING TO LIE FLAT, REQUESTING WARM WATER, ASSISTANCE WITH GARGLING, AND PRESENTS INCREASINGLY ANXIOUS. PICC NURSE UNABLE TO PROCEED, PER PT REQUEST PT'S SON IS CONTACTED VIA PHONE. 0045 PT, PT'S SON, AND PICC RN CONTINUE DISCUSSING PICC INSERTION. PT REQUESTING BLANKETS AND INCREASINGLY SHIVERING, BLANKETS PROVIDED. SUGGESTED BY PT'S SON, PICC INSERTION TO BE SCHEDULED FOR 05/25/20 AM, DUE TO PATIENT'S INABILITY TO COOPERATE. PT AND PT'S SON AGREEABLE WITH INSERTION FOR TOMORROW. AWARE.
[2020-05-25 05:05] VITALS: BP 137/78
[2020-05-25 05:18] VITALS: BP 140/73
--- NOTE | 2020-05-25 06:11 | NUR ---
PT CURRENTLY RESTING, IN NO ACUTE DISTRESS. NO COMPLAINTS OF NAUSEA OR VOMITTING OVERNIGHT. PIV INFUSING WITHOUT COMPLICATIONS ORDERED. VSS. WILL ENDORSE CARE TO DAY SHIFT RN.
--- NOTE | 2020-05-25 07:10 | NUR ---
SEEN AOX4, TELE 22, NSR, NOT IN DISTRESS, PALPABLE PULSES, NO EDEMA, DIMINISHED BLF, 2LPM VIA NC, O2 SAT 100%, +BS, VOIDS WITH NO DYSURIA, URINE CULTURE ESBL, GENERALIZED WEAKNESS, R CHEST TUNNELED CATHETER IN PLACE, NO PAIN AT THIS TIME, IV INTACT AND PATENT, RFA, NO REDNESS OR SWELLING, CALL LIGHT WITHIN REACH,BED AT LOWEST POSITION, SIDE RAILS UP.
[2020-05-25 07:50] LABS: CALCIUM 8.7 mg/dL (8.5-10.1); CARBON DIOXIDE 25.4 mmol/L (21-32); MAGNESIUM 1.8 mg/dL (1.8-2.4); PHOSPHOROUS 4.5 mg/dL (2.5-4.9); PLATELET COUNT 182 x10^3mcL (130-400)
[2020-05-25 07:52] LABS: CREATININE SERUM 5.3 mg/dL (0.6-1.0)
[2020-05-25 08:07] VITALS: BP 132/88
[2020-05-25 08:15] LABS: BASOPHIL % 0 % (0-2); RED CELL DISTRIBUTION WIDTH 18.4 % (11.5-14.5)
--- NOTE | 2020-05-25 08:41 | NUR ---
SPOKE WITH OF PATIENT, JESSENIA. PER JESSENIA, PATIENT AGREED TO MIDLINE PLACEMENT. PPD READ ON LFA, NEGATIVE INDURATION.
--- NOTE | 2020-05-25 10:23 | NUR ---
DENTAL CLAIMS PROCESSOR GEN AT BEDSIDE.
--- NOTE | 2020-05-25 10:33 | NUR ---
PAGED DR EVERETT FOR PATIENT'S TELE MONITOR READING BUNDLE BRANCH BLOCK WITH DEPRESSED ST. PATIENT IS CURRENTLY ON HD.
--- NOTE | 2020-05-25 11:09 | NUR ---
DR EVERETT MADE AWARE OF BBB WITH DEPRESSED ST AND THAT PATIENT WAS ON DIALYSIS AT THE TIME. PATIENT WAS CALM, NO SIGNS OF DISTRESS, NO CHEST PAIN, NO SOB.
--- NOTE | 2020-05-25 11:13 | NUR ---
PATIENT REFUSED TO CONTINUE HD FOR TODAY. PER PATIENT SHE FEELS TIRED. RN GEN AND I WITNESSED REFUSAL TO CONTINUE. PATIENT SIGNED REFUSAL FORM TO CONTINUE FOR TODAY. PATIENT UNDERSTOOD EFFECTS AFTER NOT FINISHING DIALYSIS.
--- NOTE | 2020-05-25 11:24 | NUR ---
HD DONE 1300ML OUTPUT PER STRATIGRAPHY TEACHER BEN
--- NOTE | 2020-05-25 11:37 | NUR ---
DR EVERETT MADE AWARE OF PATIENT REFUSING TO CONTINUE HD DIALYSIS FOR TODAY AND THAT OUTPUT WAS 1300ML.
[2020-05-25 12:32] VITALS: BP 137/81
[2020-05-25 17:21] VITALS: BP 130/75
--- NOTE | 2020-05-25 17:39 | NUR ---
PATIENT COMFORTABLE AND NOT IN DISTRESS. NEEDS MET
--- NOTE | 2020-05-25 19:00 | NUR ---
RECEIVED REPORT FROM MICHELE LEGER. PT IS AAOX4 AND DENIES ORR/DIZZINESS. PT IS TAMAZIGHT SPEAKING WITH SOME FRENCH. PT DENIES ORR/DIZZINESS. PT ON TELE #22, NSR WITH DEPRESSED ST WITH HR 99. PT DENIES CP/PRESSURE. PT PULSES PALAPBLE AND CAP REFILL <3 SEC. PT LUNG SOUNDS DIMINISHED ON 2L NC. PT BREATHING E/U. PT DENIES SOB OR RESP DISTRESS. PT ABD SOFT/NONDISTENDED WITH ACTIVE BS X4. PT DENIES N/V/C/D. PT VOIDS FREELY VIA BRP. HEMATURIA NOTED. PT HAS HEMODIALYSIS AND DAY SHIFT RN REPORTED PT HAD HD TODAY, BUT WAS INCOMPLETE D/T PT FEELING TIRED. PT HAD OUTPUT OF 1.3L. PT HAS RIGHT CHEST TUNNELED CATH AND HSAHID MIDLINE, DRESSINGS CDI. PT HAS GENERALIZED WEAKNESS, BUT IS AMBULATORY WITH ASSIST. PT SKIN INTACT. PT DENIES S/S OF PAIN OR DISCOMFORT. PT IV TO RFA PATENT/INTACT/SL. ALL NEEDS MET. CALL LIGHT WITHIN REACH. BED IN LOWEST POSITION. SIDE RAILS X2 UP. WILL CONTINUE TO MONITOR.
[2020-05-25 20:38] VITALS: BP 130/75
[2020-05-26 00:17] LABS: BASOPHIL % 0.1 % (0-2); PLATELET COUNT 165 x10^3mcL (130-400)
[2020-05-26 00:26] LABS: RED CELL DISTRIBUTION WIDTH 18.6 % (11.5-14.5)
--- NOTE | 2020-05-26 02:41 | NUR ---
PT RESTING COMFORTABLY WITH EYES CLOSED, EASILY AROUSABLE. NO ACUTE DISTRESS NOTED. PT BREATHING E/U. ALL NEEDS MET. WILL CONTINUE TO MONITOR.
[2020-05-26 05:33] VITALS: BP 154/90
--- NOTE | 2020-05-26 06:09 | NUR ---
PT RESTED COMFORTABLY WITH EYES CLOSED DURING THE NIGHT. PT C/O NAUSEA 1X. PER EMAR, ADMINISTERED ZOFRAN IVP. PT COMPLIED WITH NURSING CARE DURING THE NIGHT. NO ACUTE DISTRESS NOTED. COMFORT AND SAFETY MEASURES MAINTAINED. ALL QUESTIONS AND CONCERNS ADDRESSED. CALL LIGHT WITHIN REACH. BED IN LOWEST POSITION. SIDE RAILS X2 UP. WILL CONTINUE TO MONITOR.
[2020-05-26 06:43] LABS: BASOPHIL % 0 % (0-2); PLATELET COUNT 164 x10^3mcL (130-400); RED CELL DISTRIBUTION WIDTH 18.4 % (11.5-14.5)
[2020-05-26 06:54] LABS: CARBON DIOXIDE 29.7 mmol/L (21-32); MAGNESIUM 1.8 mg/dL (1.8-2.4)
[2020-05-26 07:02] LABS: CREATININE SERUM 4.3 mg/dL (0.6-1.0)
--- NOTE | 2020-05-26 07:05 | NUR ---
SEEN AOX4, NOT IN DISTRESS, TELE 22, NSR, PALPABLE PULSES, NO EDEMA, DIMINISHED BLF, 3LPM VIA NC , O2 SAT 92%, +BS, VOIDS WITH NO DYSURIA, +HEMATURIA, LAST HD 05/25/20 WITH 1.3L OUTPUT, GENERALIZED WEAKNESS, AMBULATORY WITH ASSIST, SKIN DRY AND INTACT, NO PAIN AT THIS TIME, IV INTACT AND PATENT, NO REDNESS OR SWELLING, CALL LIGHT WITHIN REACH, BED AT LOWEST POSITION, SIDE RAILS UP.
--- NOTE | 2020-05-26 07:22 | NUR ---
ENDORSED CARE TO MICHELE LEGER. ALL QUESTIONS AND CONCERNS ADDRESSED.
[2020-05-26 08:31] VITALS: BP 145/86
--- NOTE | 2020-05-26 09:21 | NUR ---
PAGED DR EVERETT TWICE. NO CALL BACK. CALLED RESIDENT'S PHONE AND SPOKE WITH DR TREADWELL. PER DR TREADWELL, SHE WILL RELAY MESSAGE TO DR EVERETT REGARDING PATIENT'S SYMPTOMS OF COUGH, SOB AND ORTHOPNEA, WHICH SHE ONLY STATED TODAY, PER SON AMARJIT.
--- NOTE | 2020-05-26 09:33 | NUR ---
SPOKE DR EVERETT AND MADE AWARE OF PATIENT'S SYMPTOMS. PER DR EVERETT, SHE WILL ORDER CXR
[2020-05-26 11:55] VITALS: BP 140/80
--- NOTE | 2020-05-26 14:12 | NUR ---
PAGED DR EVERETT FOR CXR RESULTS AND AMARJIT, SON OF PATIENT WOULD WANT TO SPEAK TO DR EVERETT
--- NOTE | 2020-05-26 14:14 | NUR ---
DR EVERETT MADE AWARE OF CXR RESULTS AND SON WANTING UPDATES
--- NOTE | 2020-05-26 14:45 | NUR ---
ZOFRAN IVP GIVEN FOR NAUSEA
[2020-05-26 16:18] VITALS: BP 142/85
--- NOTE | 2020-05-26 16:39 | NUR ---
Initial Nutrition Assessment: 237A RENU CORREA 60F MR Dx: severe symptomatic anemia, hyperkalemia, PMHx: metastatic renal cell carcinoma PSHx: none Labs: (05/26) WBC 13.7H, H/H 7.8/24L, K 3L, BUN 34H, Cr 4.3H, Iron 24L, (05/20) AST 9L, ALT 9L, albumin 2.8L Meds: Colace, Merrem PRN meds: Klor-con, morphine, Tylenol, Zofran Diet: Clear liquid diet PO intake since admission: 45-100% x 4 meals with average PO intake of 58% Ht: 165.1cm/65in Wt: 50.349kg/110.8lbs BMI: 18.5 Bed scale: 110.61lbs/50.2kg IBW: 56.82kg/125lbs %IBW: 88.6% UBW: unknown Age: 60 Food Allergies: NKFA Edema: no edema noted Last BM: 05/23 Skin: Skin intact Darren: 18 Per H and P (05/20), pt is a 59-year-old non-Welsh speaking female who was referred to the ED this morning by her fisher swordfish this morning and was told to go to the ER for a low hemoglobin of 4.1. 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 The patient's code status was changed for this admission from hospice to supportive treatment in order to get treatment for her low hemoglobin. Currently patient denies dizziness, SOB, chest pain. Pt was admitted with dx: Normocytic anemia, Vasomotor nephropathy, Hyperkalemia, DVT RD Note (05/26) Per progress note (05/26), pt 1st PPD negative, pending 2nd PPD read, COVID test pending, [facility] HD [facility]. Pt was seen sitting in bed during bedside visit. Pt's clavicle bone was seen protruding with signs of muscle wasting. D/t pt is Polish speaking, RN helped with interpretation. Per pt, she felt nausea this morning, and pt also reported loose stool possible caused by intolerance of fluid diet. Pt had poor appetite because her taste changed, and she also did not like the diet she's on. At home, pt took herbal diet but could not recall the name in Welsh. Pt's is currently receiving food from family as well with MD's permission. Encouraged pt's PO intake d/t concern of low body weight. Problem with: N/V/D/C: nausea early this morning Problems with: Chewing: Swallowing: not usually per pt Current appetite: Poor per pt d/t not liking liquid diet and taste change Recent wt change: unknown %wt change: unknown Vitamin/Supplement use: herbal supplement Special diet at home: none Physical activity: unknown Nutrition education given (specify specific nutrition education and handout given): Encouraged pt to increase PO intake with food provided by family and FNS. Food-drug interactions? Education given? n/a Estimated Nutritional Needs Based on current body weight (50kg) Energy: 5991-7439 kcal/day (30-35 kcal/kg underweight for age) Protein: 50-60 g/day (1-1.2 g/kg for LBM preservation) Fluid: 9512-4233 mL/day (1 mL/kcal) Nutrition Diagnosis: 1. Malnutrition r/t inadequate PO intake a/e/b pt reported poor appetite d/t change of taste, low average PO intake of 58% since admission, and signs of muscle wasting at clavicle area. Intervention 1. Recommend renal diet when appropriate to advance pt's diet 2. Recommend Nepro BID when pt's diet can be advanced 3. Recommend Nephro-ade QD 4. Recommend encourage pt's PO intake Recommendation provided via resident's call phone Monitor/Evaluate Goal: PO intake at least 75% of estimated needs Monitor: PO intake, Labs, GI function F/U in 2-3 days as high risk 05/28-2
--- NOTE | 2020-05-26 16:40 | NUR ---
MERREM IVPB INFUSING WELL AT 100CC/HR. NO REDNESS OR SWELLING. PATIENT EATING OUTSIDE FOOD. NO N/V/DIARRHEA
--- NOTE | 2020-05-26 19:00 | NUR ---
RECEIVED REPORT FROM MICHELE LEGER. PT IS AAOX4 AND MACEDONIAN SPEAKING. PT DENIES ORR/DIZZINESS. PT ON TELE #22, ST WITH HR 104. PT DENIES CP/PRESSURE. PT PULSES PALPABLE AND CAP REFILL <3 SEC. PT LUNG SOUNDS DIMINISHED ON 2L NC. PT HAS NONPRODUCTIVE COUGH NOTED. PT DENIES SOB OR RESP DISTRESS. PT ABD SOFT/NONDISTENDED WITH ACTIVE BS X4. PT DENIES N/V/C/D. PT VOIDS VIA BEDPAN. PT ON HD. LAST HD 05/25 WITH 1.3L OUTPUT. PT HAS GENERALIZED WEAKNESS AND AMBULATORY WITH ASSIST. PT SKIN INTACT. PT IV TO RIGHT CHEST TUNNELED CATH, SHAHID MIDLINE, AND RFA 20G PATENT/INTACT/DRESSINGS CDI. ALL NEEDS MET. CALL LIGHT WITHIN REACH. BED IN LOWEST POSITION. SIDE RAILS X2 UP. WILL CONTINUE TO MONITOR.
--- NOTE | 2020-05-26 19:16 | NUR ---
PATIENT NOT IN ACUTE DISTRESS. NEEDS MET.
[2020-05-26 20:03] VITALS: BP 152/92
--- NOTE | 2020-05-26 22:24 | NUR ---
SPOKE WITH DR. YEAGER REGARDING PT HAVING DIALYSIS TOMORROW. PER DR. YEAGER, [facility] WILL BE THE ONE THAT WOULD PUT IN THE ORDER FOR DIALYSIS AND WILL CONTACT THE DIALYSIS NURSE. WILL MAKE URGENT CARE TECHNICIAN AWARE.
--- NOTE | 2020-05-26 22:55 | NUR ---
PT AWAKE SITTING UP COMFORTABLY IN BED ON HER PHONE. NO ACUTE DISTRESS NOTED. ALL NEEDS MET AT THIS TIME. CALL LIGHT WITHIN REACH. BED IN LOWEST POSITION. SIDE RAILS X2 UP. WILL CONTINUE TO MONITOR.
--- NOTE | 2020-05-27 | NUR ---
PT RESTING COMFORTABLY WITH EYES CLOSED, EASILY AROUSABLE. NO ACUTE DISTRESS NOTED. ASSISTED PT TO REPOSITION AT THIS TIME. ALL NEEDS MET. CALL LIGHT WITHIN REACH. BED IN LOWEST POSITION. SIDE RAILS X2 UP. WILL CONTINUE TO MONITOR.
[2020-05-27 05:56] VITALS: BP 138/88
--- NOTE | 2020-05-27 06:12 | NUR ---
PT RESTED COMFORTABLY WITH EYES CLOSED, EASILY AROUSABLE DURING THE NIGHT. PT COMPLIED WITH NURSING CARE DURING THE NIGHT. NO ACUTE DISTRESS NOTED. PT BREATHING E/U. PT DENIES SOB OR RESP DISTRESS. ALL NEEDS MET. COMFORT AND SAFETY MEASURES MAINTAINED. ALL QUESTIONS AND CONCERNS ADDRESSED. WILL ENDORSE TO DAY SHIFT NURSE.
[2020-05-27 06:46] LABS: PLATELET COUNT 144 x10^3mcL (130-400)
[2020-05-27 06:59] LABS: RED CELL DISTRIBUTION WIDTH 16.7 % (11.5-14.5)
--- NOTE | 2020-05-27 07:10 | NUR ---
RECEIVED PT FROM SELENE LEGER. PT AAOX4. PT ON TELE #22. PT DENIES CHEST PAIN AT THIS TIME. PT HAS SHAHID MIDLINE, CDI AND PATENT. PT ALSO HAS RFA 20G, CDI AND PATENT. HEPLOCKED. PT IS STABLE W/ NO DISTRESS NOTED AT THIS TIME. ALL SAFETY AND COMFORT MEASURES IN PLACE. BED IN LOW POSITION, 2 SIDE RAILS UP, CALL LIGHT WITH IN REACH. ALL QUESTIONS AND CONCERNS ADDRESSED. WILL CONTINUE TO MONITOR PT.
[2020-05-27 07:13] LABS: CALCIUM 9.5 mg/dL (8.5-10.1); CARBON DIOXIDE 27.5 mmol/L (21-32); MAGNESIUM 1.9 mg/dL (1.8-2.4); PHOSPHOROUS 4.5 mg/dL (2.5-4.9); POTASSIUM SERUM 3.5 mmol/L (3.5-5.1)
[2020-05-27 07:37] LABS: BAND NEUTROPHIL 0 % (0-10); MONOCYTE 11 % (0-7); SEGMENTED NEUTROPHILS 70 % (37-75)
[2020-05-27 07:38] LABS: CREATININE SERUM 5.4 mg/dL (0.6-1.0); PLATELET MORPHOLOGY PLATELETS DECREASED; rbc morphology (normal/abnorm) NORMAL (NORMAL)
[2020-05-27 08:51] VITALS: BP 127/80
--- NOTE | 2020-05-27 10:15 | NUR ---
IN TO SEE PT. PT REMAINS STABLE AT THIS TIME W/ NO ACUTE CHANGES TO STATUS. ALL QUESTIONS AND CONCERNS ADDRESSED. ALL NEEDS MET AT THIS TIME. WILL CONTINUE TO MONITOR PT.
[2020-05-27 12:11] VITALS: BP 137/90
--- NOTE | 2020-05-27 14:40 | NUR ---
PT RECEIVED HD. 1L OUT. PT TOLERATED WELL. ALL QUESTIONS AND CONCERNS ADDRESSED. ALL NEEDS MET AT THIS TIME. WILL CONTINUE TO MONITOR PT.
[2020-05-27 16:54] VITALS: BP 132/77
--- NOTE | 2020-05-27 19:30 | NUR ---
RECEIVED PT IN BED, AWAKE, A/O X 4, ABLE TO MAKE NEEDS KNOWN. PT ON TELE 22, NO C/O CHEST PAIN. RADIAL AND PEDAL PULSES STRONG, NO EDEMA NOTED. LUNG SOUND IS DIMISHED ON THE RIGHT SIDE, SPO2 96% ON 2L VIA NC. NO RESP DISTRESS AT THIS TIME. ABDOMEN SOFT AND ROUND, ACTIVE BS X4, NO N/V. PT ON HD, LAST HD TODAY 1 L OUT. GENERALIZED WEKANESS NOTED, ABLE TO REPOSITION SELF IN BED. IV SITE ON RFA, CDI, MIDLINE TO RIGHT UPPER ARM CDI, RIGHT UPPER CHEST TUNNELED CATH CDI. WILL CONT TO MONITOR PT FOR CHANGES IN CONDITION. CALL LIGHT WITHIN REACH AT ALL TIMES.
--- NOTE | 2020-05-27 19:42 | NUR ---
REPORT GIVEN TO MISA LEGER. PT REMAINED STABLE THROUGHOUT MY SHIFT. ALL QUESETIONS AND CONCERNS ADDRESSED. ALL CARES ENDORSED TO NIGHT RN.
[2020-05-27 20:15] VITALS: BP 140/76
--- NOTE | 2020-05-28 00:30 | NUR ---
PT IN BED RESTING COMFORTABLY WITH EYES CLOSED. NO C/O PAIN AT THIS TIME. PROVIDED WITH SOME WARM WATER PER PT REQUEST EARLIER IN THE EVENING. PT REMAINED STABLE AT THIS TIME. CALL LIGHT WITHIN REACH. WILL CONT TO MONITOR.
[2020-05-28 06:14] VITALS: BP 147/74
--- NOTE | 2020-05-28 06:16 | NUR ---
PT IN BED AWAKE RESTING COMFORTABLY. PT HAD C/O OF DISCOMFORT, OFFERED PAIN MEDICATION HOWEVER PTY REFUSED. REPOSITIONED PT IN BED FOR COMFORT, VERBALIZED FEELING SO MUCH BETTER. PT REMAINED STABLE AT THIS TIME. NO C/O PAIN. RESP IS EVEN AND UNALBORED.CALL LIGHT WITHIN EASY REACH. WILL CONT TO MONITOR AND ENDORSE TO NEXT SHIFT NURSE.
[2020-05-28 07:01] LABS: PLATELET COUNT 137 x10^3mcL (130-400)
[2020-05-28 07:09] LABS: BASOPHIL % 0 % (0-2); RED CELL DISTRIBUTION WIDTH 18.2 % (11.5-14.5)
--- NOTE | 2020-05-28 07:10 | NUR ---
RECEIVED PT FROM MISA LEGER. PT AAOX4. PT ON TELE #22. PT DENIES CHEST PAIN AT THIS TIME. PT HAS SHAHID MIDLINE, CDI AND PATENT. PT ALSO HAS RFA 20G, CDI AND PATENT. HEPLOCKED. PT IS STABLE W/ NO DISTRESS NOTED AT THIS TIME. ALL SAFETY AND COMFORT MEASURES IN PLACE. BED IN LOW POSITION, 2 SIDE RAILS UP, CALL LIGHT WITH IN REACH. ALL QUESTIONS AND CONCERNS ADDRESSED. WILL CONTINUE TO MONITOR PT.
[2020-05-28 07:15] LABS: CALCIUM 9.3 mg/dL (8.5-10.1); CARBON DIOXIDE 27.4 mmol/L (21-32); CREATININE SERUM 3.8 mg/dL (0.6-1.0); MAGNESIUM 1.6 mg/dL (1.8-2.4); PHOSPHOROUS 3.6 mg/dL (2.5-4.9); POTASSIUM SERUM 3.1 mmol/L (3.5-5.1)
--- NOTE | 2020-05-28 07:26 | NUR ---
NOTIFIED DR MCLEAN ABOUT POTASSIUM 3.1. MAG 1.6. AWAITING ORDERS. ALL QUESTIONS AND CONCERNS ADDRESSED. ALL NEEDS MET AT THIS TIME. WILL CONTINUE TO MONITOR PT.
[2020-05-28 09:22] VITALS: BP 139/70
--- NOTE | 2020-05-28 10:15 | NUR ---
IN TO SEE PT. DR GRAVESED AT BEDSIDE DISCUSSING POC WITH PT AND SON OVER PT'S PHONE. ALL QUESTIONS AND CONCERNS ADDRESSED. ALL NEEDS MET AT THIS TIME. WILL CONTINUE TO MONITOR PT.
--- NOTE | 2020-05-28 13:41 | NUR ---
Follow Up Nutrition Assessment: 237A RENU CORREA 60F MR Dx: severe symptomatic anemia, hyperkalemia, PMHx: metastatic renal cell carcinoma PSHx: none Labs: WBC 12H, H/H 7.6/23L, K 3.1L, BUN 25H, Cr 3.8H Meds: Colace, Merrem, Klor-con, morphine, Tylenol, Zofran, D50, preparation H ointment Diet: Clear liquid diet, renal, nepro BID, (nephrovite) PO intake since admission: 50% (average) Food Allergies: NKFA Edema: no edema noted Last BM: 05/27/20 Skin: Skin intact Darren: [address] (05/26) Per progress note (05/26), pt 1st PPD negative, pending 2nd PPD read, COVID test pending, Tunnel cath-outpatient HD at [facility]. Pt was seen sitting in bed during bedside visit. Pt's clavicle bone was seen protruding with signs of muscle wasting. D/t pt is Albanian speaking, RN helped with interpretation. Per pt, she felt nausea this morning, and pt also reported loose stool possible caused by intolerance of fluid diet. Pt had poor appetite because her taste changed, and she also did not like the diet she's on. At home, pt took herbal diet but could not recall the name in Wolof. Pt's is currently receiving food from family as well with MD's permission. Encouraged pt's PO intake d/t concern of low body weight. RD note (05/28/20): Pt continues to receive food from family, per pt's nurse pt is eating a little bit of the food the pt's family brings, pt is not eating the clear liquid food items provided, pt is not drinking the oral supplement at this time, PO intake is about 50% Estimated Nutritional Needs Based on current body weight (50kg) Energy: 9682-8579 kcal/day (30-35 kcal/kg underweight for age) Protein: 50-60 g/day (1-1.2 g/kg for LBM preservation) Fluid: 4358-9831 mL/day (1 mL/kcal) Nutrition Diagnosis: 1. Malnutrition r/t inadequate PO intake a/e/b pt reported poor appetite d/t change of taste, low average PO intake of 58% since admission, and signs of muscle wasting at clavicle area (ongoing) 2. Inadequate oral intake related to poor appetite, change of taste as evidenced by 50% PO intake since admission (ongoing) Intervention 1. Continue current diet and nepro BID 2. Recommend encourage pt's PO intake Monitor/Evaluate Goal: PO intake at least 75% of estimated needs (not met, ongoing) Monitor: PO intake, Labs, GI function, ONS intake F/U in 2-3 days as high risk 05/30-4
--- NOTE | 2020-05-28 13:45 | NUR ---
1. Continue current diet and nepro BID 2. Recommend encourage pt's PO intake
[2020-05-28 13:55] VITALS: BP 147/72
[2020-05-28 17:45] VITALS: BP 132/82
--- NOTE | 2020-05-28 19:15 | NUR ---
REPORT GIVEN TO MISA LEGER. PT REMAINED STABLE THROUGHOUT MY SHIFT. ALL QUESTIONS AND CONCERNS ADDRESSED. ALL NEEDS MET AT THIS TIME. ALL CARES ENDORSED.
--- NOTE | 2020-05-28 20:24 | NUR ---
RECEIVED PT FROM DAY SHIFT NURSE. AWAKE RESTING COMFORTABLY. PT VERBALIZED SHE HAD BM AND NEEDS TO BE CHANGED, RN ASSISTED AND HELPED PT TO BE CLEANED. PT REMAINED TO BE A/O X4, ABLE TO MAKE NEEDS KNOWN. CONT ON CARDIAC MONITORING TELE # [address], HR 94, NO C/O CP. RADIAL AND PEDAL PULSES PRESENT AND STRONG, NO EDEMA. RESPIRATION EVEN AND UNLABORED, ON RA SPO2 96%, LUNGS CLEAR BILATERALLY. ABDOMEN IS SOFT AND FLAT, ACTIVE BS X 4 PRESENT. NO C/O N/V AT THIS TIME, REPORT OF WATERY STOOL X1. PT ON HD, LAST HD 05/27 WITH 1L OUT. OBSERVED WITH GENERALIZED WEAKNESS, ABLE TO REPOSITION SELF IN BED. IV SITE TO RFA CDI. MIDLINE TO RIGHT UPPER ARM, CDI, AND RIGHT UPPER CHEST TUNNELED CATH CDI. PT DENIED PAIN AT THIS TIME, WILL CONT TO MONITOR FOR CHANGES IN CONDITION. CALL LIGHT WITHIN EASY REACH AT ALL TIMES.
[2020-05-28 22:34] VITALS: BP 132/77
--- NOTE | 2020-05-29 00:23 | NUR ---
PT IN BED, RESTING COMFORTABLY WITH EYES CLOSED. NO ACUTED DISTRES NOTED. RESP IS EVEN AND UNLABORED. CALL LIGHT WITHIN EASY REACH. BED IN THE LOWEST POSITION. CONTINUE TO MONITOR PT FOR ANY POSSIBLE CHANGES IN CONDITION.
--- NOTE | 2020-05-29 05:57 | NUR ---
PT REMAINED IN BED RESTING COMFORTABLY WITH EYES CLOSE. NO C/O PAIN, NO ACUTE DISTRESS NOTED. RESP IS EVEN AND UNALBORED. NO C/O CHEST PAIN. NEEDS ATTENDED AND MET FREQUENT VISUAL MONITORING RENDERED. PT REMAINED STABLE AT THIS TIME. ENCOURAGED ORAL INTAKE, FAMILY SENT FOOD FROM HOME EARLY IN THE EVENING. CALL LIGHT WITHIN EASY REACH, WILL CONT TO MONITOR FOR CHANGES IN CONDITION.
--- NOTE | 2020-05-29 07:15 | NUR ---
RECEIVED PT IN BED SITTING UP, AWAKE, ALERT, VERBALLY RESPONSIVE. ON RA, DENIES SOB. DENIES PAIN OR DISCOMFORT AT THIS TIME. IV SITE TO RFA SALINE LOCK. R CHEST TUNNEL CATH COVERED WITH DRY DRESSING. SHAHID PICC LINE COVERED WITH TRANSPARENT DRESSING. NO QUESTIONS OR CONCERN AT THIS TIME. BED IN LOWEST POSITION. CALL LIGHT WITHIN REACH. WILL CONTINUE TO MONITOR.
[2020-05-29 08:16] LABS: PLATELET COUNT 152 x10^3mcL (130-400)
[2020-05-29 08:34] LABS: BASOPHIL % 0 % (0-2); RED CELL DISTRIBUTION WIDTH 18.6 % (11.5-14.5)
[2020-05-29 08:37] LABS: CALCIUM 9.3 mg/dL (8.5-10.1); CARBON DIOXIDE 24.9 mmol/L (21-32); MAGNESIUM 1.8 mg/dL (1.8-2.4); PHOSPHOROUS 3.2 mg/dL (2.5-4.9); POTASSIUM SERUM 3.6 mmol/L (3.5-5.1)
[2020-05-29 09:00] LABS: CREATININE SERUM 4.7 mg/dL (0.6-1.0)
[2020-05-29 09:01] VITALS: BP 152/88
[2020-05-29 13:27] VITALS: BP 138/83
[2020-05-29 17:40] VITALS: BP 151/78
--- NOTE | 2020-05-29 18:42 | NUR ---
PT IN BED AWAKE, ALERT, ABLE TO MAKE NEEDS KNOWN. ON RA AT THIS TIME, DENIES SOB. DENIES PAIN OR DISCOMFORT AT THIS TIME. IV SITE TO RFA SALINE LOCK. R CHEST TUNNEL CATH COVERED WITH DRY DRESSING. SHAHID PICC LINE COVERED WITH TRANSPARENT DRESSING. BED IN LOWEST POSITION. CALL LIGHT WITHIN REACH. WILL ENDORSE ADDITIONAL CARE TO INCOMING NURSE
--- NOTE | 2020-05-29 19:35 | NUR ---
RECEIVED REPORT FROM DAY SHIFT RN. PT RESTING IN BED. AA&O X4. NO SOB ON ROOM AIR. BREATHING EVEN AND UNLABORED. NO C/O N/V. PT STATES MILD ABD DISCOMFORT. REFUSED PAIN MEDICATION AT THIS TIME. MIDLINE TO SHAHID AND IV TO RFA, PATENT AND INTACT. TUNNELED HD CATHETER TO RT UPPER CHEST, DRESSING CDI. SAFETY MEASURES IN PLACE. BED IN LOWEST POSITION. SIDE RAILS UP X2. INSTRUCTED PT TO CALL FOR ASSISTANCE. CALL LIGHT WITHN REACH.
[2020-05-29 21:11] VITALS: BP 144/69
--- NOTE | 2020-05-30 02:16 | NUR ---
PT RESTING WITH EYES CLOSED. BREATHING EVEN AND UNLABORED ON ROOM AIR. NO FACIAL GRIMACING. SAFETY MEASURES IN PLACE. CALL LIGHT WITHIN REACH. WILL CONTINUE TO MONITOR.
[2020-05-30 05:28] VITALS: BP 143/75
--- NOTE | 2020-05-30 06:58 | NUR ---
PT RESTING COMFORTABLY. NO SOB ON ROOM AIR. NO C/O PAIN AT THIS TIME. NO ACUTE DISTRESS DURING SHIFT. MIDLINE TO SHAHID AND IV TO RFA, INTACT. SAFETY MEASURES MAINTAINED. ALL NEEDS ATTENDED TO. CALL LIGHT WITHIN REACH. WILL ENDORSE CONTINUITY OF CARE TO DAY SHIFT.
[2020-05-30 07:15] LABS: BASOPHIL % 0.2 % (0-2); PLATELET COUNT 164 x10^3mcL (130-400)
--- NOTE | 2020-05-30 07:30 | NUR ---
SEEN IN BED AAOX4. BREATHING E/U ON ROOM AIR. NO SOB OR RESP DISTRESS NOTED. DENIES PAIN. ON TELE# 22 NSR. ON CLEAR LIQUID DIET AND FOOD FROM FAMILY IS OK BY PHYSICIAN. STATED STILL VOIDS. GEN BODY WEAKNESS. ON H D LAST HD WAS 05/27/20, TUNNELLED CATHETER TO RIGHT CHEST WALL WITH DRSG CDI. MIDLINE TO SHAHID INTACT AND PATENT. PLAN OF CARE DISCUSSED, CALL LIGHT PLACED WITHIN EASY REACH, SIDERAILS UP X2.
[2020-05-30 07:34] LABS: RED CELL DISTRIBUTION WIDTH 19.5 % (11.5-14.5)
[2020-05-30 08:06] LABS: CALCIUM 8.9 mg/dL (8.5-10.1); POTASSIUM SERUM 4.1 mmol/L (3.5-5.1)
[2020-05-30 08:07] LABS: CREATININE SERUM 5.1 mg/dL (0.6-1.0)
[2020-05-30 08:14] LABS: MAGNESIUM 1.7 mg/dL (1.8-2.4); PHOSPHOROUS 5.1 mg/dL (2.5-4.9)
[2020-05-30 09:00] VITALS: BP 148/84
[2020-05-30 09:06] VITALS: BP 107/51
--- NOTE | 2020-05-30 10:00 | NUR ---
SEEN SITTING UP IN BED NO RESP DISTRESS NOTED. BREATHING E/U ON ROOM AIR. PLAN OF CARE DISCUSSED. PATIENT STATED SHE WANTS TO GO HOME. APPEARS DEPRESSED. EMOTIONAL SUPPORT PROVIDED. CALL LIGHT PLACED WITHIN EASY REACH, SIDERAILS UP X2. WILL CONTINUE TO MONITOR.
--- NOTE | 2020-05-30 11:02 | NUR ---
RECEIVED A CALL FROM PATIENT'S SON STATED THAT HE REQUEST NOT TO HAVE ANY V/S DONE AT NIGHT FOR HIS MOTHER AND BLOOD DRAW FROM MIDLINE ONLY IF IT IS POSSIBLE. DOCTOR STACY EWING.
--- NOTE | 2020-05-30 11:58 | NUR ---
NOTED ORDER FOR HD, [facility] MADE AWARE.
[2020-05-30 12:30] VITALS: BP 145/81
[2020-05-30] MEDS ORDERED: ONDANSETRON4 M3 PO (14:16)
--- NOTE | 2020-05-30 14:54 | NUR ---
NOTED DISCHARGE HOME ORDER. [facility] NOTIFIED THAT PATIENT WILL BE DISCHARGED HOME AFTER HEMODIALYSIS. PER [facility] STATED THAT SHE PROB ABLE TO START PATIENT'S HD AROUND 1800HRS. PATIENT MADE AWARE OF CURRENT PLAN.
--- NOTE | 2020-05-30 17:38 | NUR ---
UNABLE TO GIVE MERREM DOSE DUE AT 1700HRS DUE TO ONGOING HEMODIALYSIS. MERREM RESCHEDULED AT 2100HRS PER PHARMACIST. WILL ENDORSE TO INCOMING SHIFT.
--- NOTE | 2020-05-30 17:55 | NUR ---
INFORMED PATIENT'S SON PAULO THAT PATIENT WILL BE DISCHARGED HOME TONIGHT AFTER HEMODIALYSIS.
--- NOTE | 2020-05-30 17:56 | NUR ---
NO ANY DISTRESS THROUGHOUT SHIFT. REFUSED PAIN MEDICATION OFFERRED STATED I'M OK. ZOFRAN 4MG IV GIVEN X1 FOR NAUSEA AND EFFECTIVE. VOIDED X2. HEMODIALYSIS ONGOING AT BEDSIDE. NO ANY DISTRESS ON ROOM AIR.
--- NOTE | 2020-05-30 19:30 | NUR ---
RECEIVED PT IN NO ACUTE DISTRESS. GETTING HEMODIALYSIS AT THIS TIME. AWAKE OVERNIGHT MONITOR AT BEDSIDE. HOB ELEVATED. CALL LIGHT WITHIN REACH. WILL CONTINUE TO MONITOR.
--- NOTE | 2020-05-30 20:20 | NUR ---
HEMODIALYSIS FINISHED, 1L OUT. PT IN NO ACUTE DISTRESS.
[2020-05-30 20:36] VITALS: BP 130/81
--- NOTE | 2020-05-30 21:13 | NUR ---
RECEIVED CALL FROM TELE MONITORS REGARDING PT'S HR IN 130'S. PT ASYMPTOMATIC. DENIES CP OR PRESSURE. VS: TEMP 98.9, RR 20, BP 118/74 (MAP 83), O2 SAT 93%. DR. BERGERON NOTIFIED. NO NEW ORDERS. WILL CONTINUE TO MONITOR.
[2020-05-30 21:16] VITALS: BP 118/74
--- NOTE | 2020-05-30 22:45 | NUR ---
SPOKE WITH DR. BERGERON REGARDING PT'S HR RANGING FROM 103-130'S. PT SLEEPING AT THIS TIME, EASILY AROUSABLE. PER DR. BERGERON, CANCEL DISCHARGE FOR TONIGHT. PT'S SON PAULO AND AMARJIT UPDATED WITH PLAN OF CARE. WILL CONTINUE TO MONITOR.
--- NOTE | 2020-05-31 03:25 | NUR ---
REPORT GIVEN TO СЕРГЕЙ LEGER. PT SLEEPING AT THIS TIME BUT AROUSABLE. RESP EVEN AND UNLABORED ON RA. CALL LIGHT WITHIN REACH.
--- NOTE | 2020-05-31 03:31 | NUR ---
RECEIVED BEDSIDE REPORT FROM LAYER OUT RN. PT RESTING COMFORTABLY AT THIS TIME. HR MAINTINING 90S TO 100S. WILL RESUME CARE. WILL CONTINUE TO MONITOR. CALL LIGHT IN REACH. BED IN LOWEST POSITION.
[2020-05-31 05:21] VITALS: BP 133/73
--- NOTE | 2020-05-31 07:30 | NUR ---
SEEN IN BED AAOX4. BREATHING E/U ON ROOM AIR. NO SOB OR RESP DISTRESS NOTED. DENIES PAIN. ON TELE# 22 NSR. ON CLEAR LIQUID DIET AND FOOD FROM FAMILY IS OK BY PHYSICIAN. HAD HD LAST NIGHT. GEN BODY WEAKNESS. TUNNELLED CATHETER TO RIGHT CHEST WALL WITH DRSG CDI. MIDLINE TO SHAHID INTACT AND PATENT. PLAN OF CARE DISCUSSED, CALL LIGHT PLACED WITHIN EASY REACH, SIDERAILS UP X2.
[2020-05-31 07:47] VITALS: BP 137/78
--- NOTE | 2020-05-31 11:30 | NUR ---
DOCTOR LUIS AND MEDICAL TEAM AT BEDSIDE FOR AM ROUND. PATIENT MADE AWARE OF CURRENT CONDITION AND PLAN OF CARE.
--- NOTE | 2020-05-31 13:05 | NUR ---
CBC DRAWN AT BEDSIDE, WILL FOLLOW UP THE RESULT.
[2020-05-31 13:12] LABS: BASOPHIL % 0.3 % (0-2); PLATELET COUNT 180 x10^3mcL (130-400)
[2020-05-31 13:21] LABS: RED CELL DISTRIBUTION WIDTH 19.5 % (11.5-14.5)
--- NOTE | 2020-05-31 13:49 | NUR ---
INFORMED DOCTOR STANLEY THAT CBC RESULT IS DONE.
[2020-05-31 14:37] VITALS: BP 137/78
--- NOTE | 2020-05-31 14:39 | NUR ---
MIDLINE TO SHAHID REMOVED BY DOCTOR ANGEL, NO ERYTHEMA TO SITE, NO BLEEDING, PRESSURE DRSG APPLIED. PATIENT WILL BE DISCHARGED HOME. TELEMETRY RETURNED TO NE. AWAITING FOR PATIENT'S SON TO NURSING ASSOC PATIENT. DENIES PAIN OR DISCOMFORT.
--- NOTE | 2020-05-31 15:15 | NUR ---
BROUGHT VIA WHEELCHAIR TO [facility], CONDITION STABLE, TUNELLED CATHETER WITH DRSG NOTED CDI. DISCHARGE INSTRUCTION GIVEN TO PATIENT'S SPOUSE, VERBALIZED UNDERSTANDING. EXPLAINED TO PATIENT'S SPOUSE HOW TO KEEP TUNNELLED CATHETER CLEAN, DRY AND DRSG INTACT AT ALL TIMES. PATIENT AND SPOUSE VERBALIZED UNDERSTANDING.
== END 2020-05-31 15:18 | disposition home or self-care (01) | DRG 871 ==
LOC: ED 19:07 → DU 20:56
PROVIDERS: Emergency Medicine; Family Medicine; Internal Medicine; Specialist; ADMIT Internal Medicine; ATTEND Internal Medicine
PROC: 30233N1 Transfusion of Nonautologous Red Blood Cells into Peripheral Vein, Percutaneous Approach (ICD-10-PCS; principal; 2020-05-22)
PROC: 5A1D70Z Performance of Urinary Filtration, Intermittent, Less than 6 Hours Per Day (ICD-10-PCS; 2020-05-22)
PROC: 5A1D70Z Performance of Urinary Filtration, Intermittent, Less than 6 Hours Per Day (ICD-10-PCS; 2020-05-23)
PROC: 0JH63XZ Insertion of Tunneled Vascular Access Device into Chest Subcutaneous Tissue and Fascia, Percutaneous Approach (ICD-10-PCS; 2020-05-24)
PROC: 02HV33Z Insertion of Infusion Device into Superior Vena Cava, Percutaneous Approach (ICD-10-PCS; 2020-05-24)
PROC: B518ZZA Fluoroscopy of Superior Vena Cava, Guidance (ICD-10-PCS; 2020-05-24)
PROC: 5A1D70Z Performance of Urinary Filtration, Intermittent, Less than 6 Hours Per Day (ICD-10-PCS; 2020-05-25)
PROC: 5A1D70Z Performance of Urinary Filtration, Intermittent, Less than 6 Hours Per Day (ICD-10-PCS; 2020-05-27)
PROC: 5A1D70Z Performance of Urinary Filtration, Intermittent, Less than 6 Hours Per Day (ICD-10-PCS; 2020-05-30)
DX: A41.9 Sepsis, unspecified organism (principal); N17.0 Acute kidney failure with tubular necrosis; N18.6 End stage renal disease; C64.9 Malignant neoplasm of unspecified kidney, except renal pelvis; N39.0 Urinary tract infection, site not specified; N13.6 Pyonephrosis; E87.2 Acidosis; R31.0 Gross hematuria; E87.5 Hyperkalemia; D63.1 Anemia in chronic kidney disease; E87.6 Hypokalemia; Z66 Do not resuscitate; E83.52 Hypercalcemia; Z79.899 Other long term (current) drug therapy; Z85.528 Personal history of other malignant neoplasm of kidney; Z90.5 Acquired absence of kidney; Z99.2 Dependence on renal dialysis
CPT/HCPCS: 82962; 83880; 94150; A4301; G0378; J0696; J0885-EC; J1170; J1200; J1642; J1644; J1815; J2001; J2185; J2250; J2270; J2405; J2916; J2997; J3010; J3490; J7030; J7040; J7050; J7060; P9016; Q0092; U0003-CS

== ENCOUNTER 2020-06-27 17:56 | Inpatient (IN) | payer OTHER ==
[~2020-06-27] VITALS: Ht 154.9 cm; Wt 51.1 kg
[~2020-06-27 17:56] MED LIST changes: +ONDANSETRON4 M3 PO
[2020-06-27 18:03] VITALS: Ht 154.9 cm; Wt 51.1 kg
[2020-06-27 18:47] LABS: CALCIUM 9.4 mg/dL (8.5-10.1); CARBON DIOXIDE 22.7 mmol/L (21-32); CREATININE SERUM 2.2 mg/dL (0.6-1.0); POTASSIUM SERUM 4.2 mmol/L (3.5-5.1)
[2020-06-27 18:52] LABS: ALBUMIN 1.6 g/dL (3.4-5.0); BILIRUBIN TOTAL 0.8 mg/dL (0.20-1.00); TOTAL PROTEIN, SERUM 5.3 g/dL (6.4-8.2)
[2020-06-27 19:03] LABS: RED CELL DISTRIBUTION WIDTH 24.4 % (11.5-14.5)
[2020-06-27 19:04] LABS: PLATELET COUNT 92 x10^3mcL (130-400)
[2020-06-27 20:09] LABS: BAND NEUTROPHIL 6 % (0-10); BASOPHIL 0 % (0-2); MONOCYTE 2 % (0-7); SEGMENTED NEUTROPHILS 88 % (37-75)
[2020-06-27 20:10] LABS: rbc morphology (normal/abnorm) ABNORMAL (NORMAL)
[2020-06-27 20:12] LABS: target cell (codocyte) 1+
[2020-06-28] VITALS (7 sets, daily range): BP systolic 84–105; BP diastolic 48–59
[2020-06-28 02:31] LABS: MAGNESIUM 1.9 mg/dL (1.8-2.4); PHOSPHOROUS 4.5 mg/dL (2.5-4.9)
[2020-06-28 02:46] LABS: CHOLESTEROL/HDL RATIO 8.5
[2020-06-29] VITALS: BP 113/61
[2020-06-29 04:00] VITALS: BP 89/51
[2020-06-29 06:16] LABS: BASOPHIL % 0.1 % (0-2); PLATELET COUNT 116 x10^3mcL (130-400); RED CELL DISTRIBUTION WIDTH 27.4 % (11.5-14.5)
[2020-06-29 07:08] LABS: CALCIUM 9.4 mg/dL (8.5-10.1); CARBON DIOXIDE 19.4 mmol/L (21-32); CREATININE SERUM 3.8 mg/dL (0.6-1.0); MAGNESIUM 2.1 mg/dL (1.8-2.4); PHOSPHOROUS 6.4 mg/dL (2.5-4.9); POTASSIUM SERUM 4.2 mmol/L (3.5-5.1)
[2020-06-29 07:45] VITALS: BP 102/58
[2020-06-29 12:45] VITALS: BP 95/59
[2020-06-29 15:30] VITALS: BP 90/48
[2020-06-29 20:20] VITALS: BP 110/48
[2020-06-30 05:47] VITALS: BP 94/53
[2020-06-30 08:51] VITALS: BP 99/57
[2020-06-30 09:08] LABS: CALCIUM 9.4 mg/dL (8.5-10.1); CARBON DIOXIDE 26.8 mmol/L (21-32); CREATININE SERUM 2.7 mg/dL (0.6-1.0); MAGNESIUM 1.7 mg/dL (1.8-2.4); PHOSPHOROUS 3.4 mg/dL (2.5-4.9); POTASSIUM SERUM 3.3 mmol/L (3.5-5.1)
[2020-06-30 09:23] LABS: PLATELET COUNT 94 x10^3mcL (130-400); RED CELL DISTRIBUTION WIDTH 26.9 % (11.5-14.5)
[2020-06-30 12:07] LABS: BAND NEUTROPHIL 2 % (0-10); MONOCYTE 7 % (0-7); SEGMENTED NEUTROPHILS 74 % (37-75)
[2020-06-30 12:08] VITALS: BP 115/61
[2020-06-30 12:08] LABS: rbc morphology (normal/abnorm) ABNORMAL (NORMAL)
[2020-06-30 12:09] LABS: PLATELET MORPHOLOGY LARGE PLATELET SEEN
[2020-06-30 16:51] VITALS: BP 108/71
[2020-06-30 20:20] VITALS: BP 103/63
[2020-07-01 05:20] VITALS: BP 128/69
[2020-07-01 07:41] VITALS: BP 112/69
[2020-07-01 08:02] LABS: CALCIUM 9.7 mg/dL (8.5-10.1); CARBON DIOXIDE 24.8 mmol/L (21-32); CREATININE SERUM 3.6 mg/dL (0.6-1.0); POTASSIUM SERUM 4.3 mmol/L (3.5-5.1)
[2020-07-01 08:13] LABS: BASOPHIL % 0 % (0-2); PLATELET COUNT 118 x10^3mcL (130-400)
[2020-07-01 12:04] VITALS: BP 111/58
[2020-07-01 12:16] LABS: rbc morphology (normal/abnorm) ABNORMAL (NORMAL)
[2020-07-01 16:12] VITALS: BP 96/47
== END 2020-07-01 19:08 | disposition expired ==
LOC: ED 17:56 → IC 06-28 00:02 → DU 06-28 00:02 → IC 06-28 13:32 → DU 06-29 18:44
PROVIDERS: Internal Medicine; Student in an Organized Health Care Education/Training Program; ADMIT Internal Medicine; ATTEND Internal Medicine
DX: I21.A1 Myocardial infarction type 2 (principal); I26.94 Multiple subsegmental thrombotic pulmonary emboli without acute cor pulmonale; E43 Unspecified severe protein-calorie malnutrition; N18.6 End stage renal disease; J96.01 Acute respiratory failure with hypoxia; C64.9 Malignant neoplasm of unspecified kidney, except renal pelvis; Z68.1 Body mass index [BMI] 19.9 or less, adult; J91.0 Malignant pleural effusion; I12.0 Hypertensive chronic kidney disease with stage 5 chronic kidney disease or end stage renal disease; R64 Cachexia; R57.9 Shock, unspecified; Z20.828 Contact with and (suspected) exposure to other viral communicable diseases; Z66 Do not resuscitate; Z51.5 Encounter for palliative care; D50.9 Iron deficiency anemia, unspecified; D63.0 Anemia in neoplastic disease; D63.8 Anemia in other chronic diseases classified elsewhere; Z79.899 Other long term (current) drug therapy
CPT/HCPCS: 82962; 83880; 85378; G0378; J1200; J1644; J1940; J2920; J7030; J7050; P9047; Q0092; Q9967